=== PATIENT | male | born 1940 | race Caucasian/White ===

== ENCOUNTER 2019-07-31 03:26 | Observation (INO) | payer OTHER, BC ==
[2019-07-31 03:44] LABS: Protime INR 0.97
[2019-07-31 03:45] LABS: Absolute Lymphocytes (CBC) 2.6 K/uL (0.7-4.9); Basophils % 0.8 % (0-1.3); Hematocrit 36.7 % (39.6-49.0); Lymphocytes % 39.9 % (15.3-44.8); MPV 10.1 fL (7.6-11.3); RBC Red Blood Cell Count 3.89 M/uL (4.33-5.43)
[2019-07-31 04:05] LABS: ALT/SGPT 20 U/L (12-78); AST/SGOT 14 U/L (15-37); Albumin 3.4 g/dL (3.4-5.0); Alkaline Phosphatase 69 U/L (45-117); BUN Blood Urea Nitrogen 19 mg/dL (7-18); Bicarbonate 26 mmol/L (21-32); Bilirubin Direct 0.1 mg/dL (0-0.2); Bilirubin Total 0.3 mg/dL (0.2-1.0); Glucose Level 104 mg/dL (74-106); NT PRO-BNP 324 pg/mL (<450); Protein, Total 7.2 g/dL (6.4-8.2); Sodium Level 142 mmol/L (136-145); Troponin (Emerg Dept Use Only) < 0.02 ng/mL (0.0-0.045)
--- NOTE | 2019-07-31 04:29 | EDPHYS ---
Physician Documentation [facility] Name: Jovany Worrell Age: 78 yrs Sex: Male : 1940 Arrival Date: 07/31/2019 Time: 03:28 Bed 7 Private MD: ED Physician Arron Londono HPI: 07/30 03:40 This 78 yrs old Male presents to ER via Unassigned with complaints of chest tw4 pain. 03:40 The patient or guardian reports chest pain that is located primarily in the anterior tw4 chest wall. Onset: 1 week(s) ago. The pain does not radiate. Associated signs and symptoms: The patient has no apparent associated signs or symptoms. The chest pain is described as dull. Duration: The patient or guardian reports multiple episodes, that wax and wane. Modifying factors: The symptoms are alleviated by nothing. the symptoms are aggravated by nothing. Severity of pain: At its worst the pain was moderate in the emergency department the pain is unchanged. Historical: - Allergies: 07:50 Claritin-D 12 Hour; jl7 - Home Meds: 03:20 aspirin 81 mg Oral chew 1 tab once daily [Active]; Crestor 5 mg Oral tab 1 tab once jb4 daily [Active]; metoprolol tartrate 25 mg Oral tab 1 tab once daily [Active]; Plavix 75 mg Oral tab 1 tab once daily [Active]; - PMHx: 03:20 CAD; GERD; High Cholesterol; Hypertension; jb4 - PSHx: 03:20 GOITER REMOVED; Triple Bypass; CABG; jb4 - Immunization history:: Adult Immunizations up to date. - Social history:: Smoking status: Patient denies any tobacco usage or history of. Patient/guardian denies using alcohol, street drugs. ROS: 03:40 Constitutional: Negative for fever, chills, and weight loss, Eyes: Negative for injury, tw4 pain, redness, and discharge, Neck: Negative for injury, pain, and swelling, Respiratory: Negative for shortness of breath, cough, wheezing, and pleuritic chest pain, Abdomen/GI: Negative for abdominal pain, nausea, vomiting, diarrhea, and constipation, Back: Negative for injury and pain, MS/Extremity: Negative for injury and deformity, Skin: Negative for injury, rash, and discoloration, Neuro: Negative for headache, weakness, numbness, tingling, and seizure. 03:40 Cardiovascular: Positive for chest pain. Exam: 03:40 Constitutional: This is a well developed, well nourished patient who is awake, alert, tw4 and in no acute distress. Head/Face: Normocephalic, atraumatic. Chest/axilla: Normal chest wall appearance and motion. Nontender with no deformity. No lesions are appreciated. Cardiovascular: Regular rate and rhythm with a normal S1 and S2. No gallops, murmurs, or rubs. Normal PMI, no JVD. No pulse deficits. Respiratory: Lungs have equal breath sounds bilaterally, clear to auscultation and percussion. No rales, rhonchi or wheezes noted. No increased work of breathing, no retractions or nasal flaring. Abdomen/GI: Soft, non-tender, with normal bowel sounds. No distension or tympany. No guarding or rebound. No evidence of tenderness throughout. Back: No spinal tenderness. No costovertebral tenderness. Full range of motion. Skin: Warm, dry with normal turgor. Normal color with no rashes, no lesions, and no evidence of cellulitis. MS/ Extremity: Pulses equal, no cyanosis. Neurovascular intact. Full, normal range of motion. Neuro: Awake and alert, GCS 15, oriented to person, place, time, and situation. Cranial nerves II-XII grossly intact. Motor strength 5/5 in all extremities. Sensory grossly intact. Cerebellar exam normal. Normal gait. Vital Signs: 03:20 BP 163 / 74; Pulse 62; Resp 13 S; Temp 97.4; Pulse Ox 100% on R/A; Weight 75.75 kg (R); jb4 Height 5 ft. 9 in. (175.26 cm) (R); Pain 0/10; 04:00 BP 153 / 68; Pulse 53; Resp 15; Pulse Ox 100% on R/A; jb4 05:15 BP 133 / 67; Pulse 51; Resp 16; Pulse Ox 98% on R/A; jb4 06:00 BP 135 / 70; Pulse 57; Resp 16; Pulse Ox 99% on R/A; Pain 0/10; jb4 07:00 BP 144 / 73; Pulse 59; Resp 17 S; Pulse Ox 100% on R/A; Pain 0/10; jl7 03:20 Body Mass Index 24.66 (75.75 kg, 175.26 cm) jb4 MDM: 03:33 Patient medically screened. 04:28 Differential diagnosis: abnormal EKG, acute myocardial infarction, acute pericarditis, tw4 coronary artery disease gastroesophageal reflux disease (GERD), myocarditis, pulmonary embolus, stable angina, thoracic aortic disection, unstable angina. HEART Score: History: Moderately Suspicious (1), ECG: Non specific repolarization disturbance / LBTB / PM (1), Age: > or = 65 years (2), Risk Factors: > or = 3 Risk factors for atherosclerotic disease (2), Troponin: < or = 1 x Normal Limit (0), Total Score = 6. The patient was not given aspirin in the Emergency Department. Administered by EMS. Data reviewed: vital signs, nurses notes. Data interpreted: Pulse oximetry: Interpretation: normal. Test interpretation: by ED physician or midlevel provider: ECG, plain radiologic studies. Counseling: I had a detailed discussion with the patient and/or guardian regarding: the historical points, exam findings, and any diagnostic results supporting the discharge/admit diagnosis, lab results, radiology results. Physician consultation: Maximino Ricketts MD regarding admission, patient's condition, and will see patient in ED. 07/30 03:29 Order name: Basic Metabolic Panel [facility] 07/30 04:26 Interpretation: Normal except: CL 110; BUN 19; GFR 65. [facility] 07/30 03:29 Order name: CBC with Diff; Complete Time: 04:26 [facility] 07/30 04:26 Interpretation: Normal except: RBC 3.89; HGB 12.4; HCT 36.7; PLT 145. 07/30 03:29 Order name: LFT's [facility] 07/30 04:26 Interpretation: Normal except: AST 14; GLOB 3.8; A/G 0.9. 07/30 03:29 Order name: Magnesium [facility] 07/30 04:26 Interpretation: Within normal limits: MG 2.0. [facility] 07/30 03:29 Order name: NT PRO-BNP [facility] 07/30 03:29 Order name: PT-INR; Complete Time: 04:26 [facility] 07/30 03:29 Order name: Troponin (emerg Dept Use Only) [facility] 07/30 05:34 Order name: Basic Metabolic Panel [facility] 07/30 05:34 Order name: Basic Metabolic Panel [facility] 07/30 05:34 Order name: CBC with Automated Diff [facility] 07/30 05:34 Order name: CBC with Automated Diff [facility] 07/30 05:34 Order name: Lipid Profile [facility] 07/30 05:34 Order name: Lipid Profile [facility] 07/30 05:34 Order name: Troponin I [facility] 07/30 03:29 Order name: XRAY Chest (1 view) [facility] 07/30 03:29 Order name: EKG; Complete Time: 03: [facility] 07/30 03:29 Order name: Cardiac monitoring; Complete Time: 03:29 [facility] 07/30 03:29 Order name: EKG - Nurse/Tech; Complete Time: 03: [facility] 07/30 03:29 Order name: IV Saline Lock; Complete Time: 03: [facility] 07/30 03:29 Order name: Labs collected and sent; Complete Time: 03: [facility] 07/30 03:29 Order name: O2 Per Protocol; Complete Time: 03: [facility] 07/30 03:29 Order name: O2 Sat Monitoring; Complete Time: 03:29 [facility] 07/30 05:34 Order name: CONS Physician Consult [facility] 07/30 05:34 Order name: Heart Healthy [facility] 07/30 05:34 Order name: Echo with Doppler [facility] 07/30 05:34 Order name: EKG Electrocardiogram [facility] 07/30 05:34 Order name: EKG Electrocardiogram [facility] 07/30 05:34 Order name: Troponin I [facility] 07/30 05:34 Order name: Troponin I [facility] 07/30 07:16 Order name: Lipid Profile [facility] EC:40 Rate is 64 beats/min. Rhythm is regular, Normal Sinus Rhythm with PACs, Right bundle tw4 branch block. QRS [place] is Normal. DC interval is normal. QRS interval is normal. QT interval is normal. No Q waves. T waves are Inverted in leads V1, V2, V3. No ST changes noted. Clinical impression: NSR w/ Non-specific ST/T Changes. Interpreted by me. Reviewed by me. Administered Medications: No medications were administered Disposition: 07/31/19 04:28 Hospitalization ordered by Maximino Ricketts for Observation. Preliminary diagnosis is Other chest pain. - Bed requested for Telemetry/MedSurg (observation). - Status is Observation. jl7 - Condition is Stable. - Problem is new. - Symptoms have improved. Signatures: Dispatcher [employer] EDMS Jennifer Lynn, RN RN tl1 Heron Soni, RN RN jb4 Loren Keita RN RN jl7 Nilton Gomez, RN RN Arron Castro MD MD tw4 Corrections: (The following items were deleted from the chart) 05:59 04:28 Hospitalization Ordered by Maximino Ricketts MD for Observation. Preliminary tl1 diagnosis is Other chest pain. Bed requested for Telemetry/MedSurg (observation). Status is Observation. Condition is Stable. Problem is new. Symptoms have improved. tw4 08:00 03:20 Allergies: No Known Allergies; jb4 jl7 08:24 05:59 07/31/2019 04:28 Hospitalization Ordered by Maximino Ricketts MD for Observation. jl7 Preliminary diagnosis is Other chest pain. Bed requested for Telemetry/MedSurg (observation). Status is Observation. Condition is Stable. Problem is new. Symptoms have improved. tl1
--- NOTE | 2019-07-31 04:29 | ER ---
Nurse's Notes [facility] Name: Jovany Worrell Age: 78 yrs Sex: Male : 1940 Arrival Date: 07/31/2019 Time: 03:28 Bed 7 Private MD: Diagnosis: Other chest pain Presentation: 07/30 03:20 Chief complaint: EMS states: PT reports having chest pain off and on for 1 week w/ jb4 numbness to the left arm. It went away for a couple of days then last night at 2200 he said it started as a sharp pain and he had numbness to his left arm. Pt denies SOB. Pt took 162 of aspirin at home ALL AROUND PRESSER of EMS, was given 162 by EMS. 03:20 Coronavirus screen: Proceed with normal triage. Ebola Screen: No symptoms or risks jb4 identified at this time. Initial Sepsis Screen: Does the patient meet any 2 criteria? No. Patient's initial sepsis screen is negative. Does the patient have a suspected source of infection? No. Patient's initial sepsis screen is negative. Risk Assessment: Do you want to hurt yourself or someone else? Patient reports no desire to harm self or others. Onset of symptoms was July 24, 2019. Transition of care: patient was not received from another setting of care. 03:20 Method Of Arrival: EMS: [facility] jb4 03:20 Acuity: SHO 3 jb4 03:20 Care prior to arrival: Medication(s) given: ASA, 81 mg, x 2, IV initiated. 20 GA, in jb4 the right antecubital area. Historical: - Allergies: 07:50 Claritin-D 12 Hour; jl7 - Home Meds: 03:20 aspirin 81 mg Oral chew 1 tab once daily [Active]; Crestor 5 mg Oral tab 1 tab once jb4 daily [Active]; metoprolol tartrate 25 mg Oral tab 1 tab once daily [Active]; Plavix 75 mg Oral tab 1 tab once daily [Active]; - PMHx: 03:20 CAD; GERD; High Cholesterol; Hypertension; jb4 - PSHx: 03:20 GOITER REMOVED; Triple Bypass; CABG; jb4 - Immunization history:: Adult Immunizations up to date. - Social history:: Smoking status: Patient denies any tobacco usage or history of. Patient/guardian denies using alcohol, street drugs. Screenin:20 Abuse screen: Denies threats or abuse. Nutritional screening: No deficits noted. jb4 Tuberculosis screening: No symptoms or risk factors identified. Fall Risk IV access (20 points). Total Prado Fall Scale indicates No Risk (0-24 pts). Assessment: 03:20 General: Appears in no apparent distress. comfortable, Behavior is calm, cooperative, jb4 appropriate for age. Pain: Denies pain. Neuro: Level of Consciousness is awake, alert, obeys commands, Oriented to person, place, time, situation, Inker Machine are equal bilaterally Moves all extremities. Full function Speech is normal, Facial symmetry appears normal, Pupils are PERRLA, Numbness in left arm. Cardiovascular: Heart tones S1 S2 present Patient's skin is warm and dry. Rhythm is sinus bradycardia. Respiratory: Airway is patent Respiratory effort is even, unlabored, Respiratory pattern is regular, symmetrical, Breath sounds are clear bilaterally. GI: No signs and/or symptoms were reported involving the gastrointestinal system. : No signs and/or symptoms were reported regarding the genitourinary system. EENT: No signs and/or symptoms were reported regarding the EENT system. Derm: Skin is intact, Skin is pink, warm \\T\\ dry. Musculoskeletal: Circulation, motion, and sensation intact. Range of motion: intact in all extremities. 04:13 Reassessment: Patient appears in no apparent distress at this time. Patient and/or jb4 family updated on plan of care and expected duration. Pain level reassessed. Patient is alert, oriented x 3, equal unlabored respirations, skin warm/dry/pink. PT reports that the numbness in the left arm is no longer there and reports feeling as though he is back at his baseline. Patient denies pain at this time. Patient states feeling better. 05:21 Reassessment: Patient appears in no apparent distress at this time. Patient and/or jb4 family updated on plan of care and expected duration. Pain level reassessed. Pt is resting in bed with no s/s of pain noted. Respirations are even and unlabored. 06:11 Reassessment: Patient appears in no apparent distress at this time. Patient and/or jb4 family updated on plan of care and expected duration. Pain level reassessed. Patient is alert, oriented x 3, equal unlabored respirations, skin warm/dry/pink. Dr. Luna at the bedside. 06:43 Reassessment: Patient appears in no apparent distress at this time. Patient and/or jb4 family updated on plan of care and expected duration. Pain level reassessed. Patient is alert, oriented x 3, equal unlabored respirations, skin warm/dry/pink. PT back from ECHO. Gave verbal permission to update his son Amado Worrell on status and plan of care. states" tell him what ever you want, go ahead and fill him in". Verified sons phone number as [phone] Patient denies pain at this time. Vital Signs: 03:20 BP 163 / 74; Pulse 62; Resp 13 S; Temp 97.4; Pulse Ox 100% on R/A; Weight 75.75 kg (R); jb4 Height 5 ft. 9 in. (175.26 cm) (R); Pain 0/10; 04:00 BP 153 / 68; Pulse 53; Resp 15; Pulse Ox 100% on R/A; jb4 05:15 BP 133 / 67; Pulse 51; Resp 16; Pulse Ox 98% on R/A; jb4 06:00 BP 135 / 70; Pulse 57; Resp 16; Pulse Ox 99% on R/A; Pain 0/10; jb4 07:00 BP 144 / 73; Pulse 59; Resp 17 S; Pulse Ox 100% on R/A; Pain 0/10; jl7 03:20 Body Mass Index 24.66 (75.75 kg, 175.26 cm) jb4 ED Course: 03:20 Maintain EMS IV. Dressing intact. Good blood return noted. Site clean \\T\\ dry. Gauge \\T\\ huey 4 site: 20g RAC. 03:20 Arm band placed on right wrist. jb4 03:20 Patient has correct armband on for positive identification. Bed in low position. Call jb4 light in reach. Side rails up X 1. intermediate school teacher on. Pulse ox on. NIBP on. 03:28 Patient arrived in ED. jd3 03:33 Arron Londono MD is Attending Physician. tw4 03:33 EKG done, by ED staff, reviewed by Arron Londono MD. ds4 03:35 Heron Soni, RN is Primary Nurse. jb4 03:51 XRAY Chest (1 view) In Process Unspecified. EDMS 03:52 Triage completed. jb4 04:28 Maximino Ricketts MD is Hospitalizing Provider. tw4 06:12 No provider procedures requiring assistance completed. Patient admitted, IV remains in jb4 place. Administered Medications: No medications were administered Outcome: 04:28 Decision to Hospitalize by Provider. tw4 08:23 Admitted to Tele accompanied by tech, via wheelchair, room 209, with chart, Report jl7 called to STEPHANIE Sung 08:23 Condition: stable 08:23 Discharge instructions given to patient, Instructed on the need for admit, Demonstrated understanding of instructions. 08:24 Patient left the ED. jl7 Signatures: Dispatcher [employer] EDNH Wilver Jane ds4 Heron Soni RN RN jb4 Loren Keita RN RN hoang7 Nilton Gomez RN RN Arron Castro MD MD tw4 Corrections: (The following items were deleted from the chart) 08:00 03:20 Allergies: No Known Allergies; [facility] jl7
[2019-07-31] MEDS ORDERED: ACETAMINOPHEN 500 MG TAB PO PRN (05:29)
[2019-07-31] MEDS ORDERED: ALPRAZOLAM 0.25 MG TABLET PO PRN (05:29)
[2019-07-31] MEDS ORDERED: MORPHINE 4 MG/ML SYR IV PRN (05:29)
[2019-07-31] MEDS ORDERED: METOPROLOL TAR 50 MG TAB PO SCH (06:30)
[2019-07-31 07:15] LABS: HDL Cholesterol 40 mg/dL (40-60); LDL Cholesterol, Calculated 64 (<130)
[2019-07-31] MEDS ORDERED: REGADENOSON 0.4 MG/5 ML SYR IV ONE (08:16)
--- NOTE | 2019-07-31 08:31 | RAD REPORT ---
EXAM DESCRIPTION: RAD - Chest Single View - 07/31/2019 3:51 am CLINICAL HISTORY: CHEST PAIN Chest pain. COMPARISON: Chest Single View dated 05/09/2016; CHEST SINGLE VIEW dated 05/20/2015; ABDOMEN 1 VIEW KUB dated 07/01/2013; CHEST SINGLE VIEW dated 06/24/2013 FINDINGS: Portable technique limits examination quality. The lungs are mildly emphysematous a scarring in the left lung base noted. The heart is mildly enlarg ed in size with changes of a prior CABG seen. No displaced fractures. IMPRESSION: COPD.
[2019-07-31 08:59] VITALS: TEMP 98
--- NOTE | 2019-07-31 08:59 | P.HP ---
Certification for Inpatient Patient admitted to: Observation With expected LOS: <2 Midnights Patient will require the following post-hospital care: None Practitioner: I am a practitioner with admitting privileges, knowledge of patient current condition, hospital course, and medical plan of care. Services: Services provided to patient in accordance with Admission requirements found in Title 42 Section 412.3 of the Code of Federal Regulations Patient History Date of Service: 07/31/19 Reason for admission: Chest pain rule out acute coronary syndrome History of Present Illness: Patient is an 78-year-old gentleman who came to the hospital with chest discomfort. Patient's pain was mainly is sternal region. He has some chest pain prior to going to bed after he ate dinner. He took some Tums and it went away. He woke up around 2 o'clock with diaphoresis and shortness of breath along with chest pain and tingling of the left hand. He has history of Coronary artery bypass grafting so he decided to come into the emergency room for further evaluation. In the emergency room patient was found have negative troponins and no acute abnormalities on EKG. Patient has had cardiac testing earlier this year. At this time will go ahead and await cardiology consultation. Allergies loratadine [From Claritin-D 12 Hour] Allergy (Intermediate, Verified 12/07/11 06:29) Hives pseudoephedrine sulfate [From Claritin-D 12 Hour] Allergy (Intermediate, Verified 12/07/11 06:29) Hives No Known Allergies Allergy (Uncoded 05/21/15 01:40) Unknown Home Medications: Metoprolol Tartrate [Lopressor*] 25 mg PO DAILY 12/07/11 Rosuvastatin Calcium [Crestor] 5 mg PO DAILY 12/07/11 Aspirin 81 mg PO DAILY 05/09/16 Clopidogrel Bisulfate [Plavix*] 75 mg PO DAILY 05/09/16 Esomeprazole Magnesium 40 mg PO DAILY 05/09/16 Montelukast Sodium [Singulair] 10 mg PO DAILY 05/09/16 Niacin (Inositol Niacinate) [Niacin 500 mg Capsule] 1,000 mg PO DAILY 05/09/16 - Past Medical/Surgical History Diabetic: No -: gerd -: cad -: hyperlipidemia -: htn -: goiter removed -: cabg - Social History Alcohol use: Yes CD- Drugs: No Caffeine use: Yes Review of Systems 10-point ROS is otherwise unremarkable Physical Examination - Vital Signs Temperature: 98 F Blood Pressure: 144/73 Pulse: 59 Respirations: 17 Pulse Ox (%): 96 - Physical Exam General: Alert, In no apparent distress, Oriented x3 HEENT: Atraumatic, PERRLA, Mucous membr. moist/pink, EOMI, Sclerae nonicteric Neck: Supple, 2+ carotid pulse no bruit, No LAD, Without JVD or thyroid abnormality Respiratory: Clear to auscultation bilaterally, Normal air movement Cardiovascular: Regular rate/rhythm, Normal S1 S2, Systolic murmur Gastrointestinal: Normal bowel sounds, Soft and benign, Non-distended, No tenderness, No rebound, No guarding Musculoskeletal: No clubbing, No swelling, No tenderness Integumentary: No rashes Neurological: Normal gait, Normal speech, Normal strength at 5/5 x4 extr, Normal tone, Sensation intact, Cranial nerves 3-12 intact, Normal affect Lymphatics: No axilla or inguinal lymphadenopathy - Studies Laboratory Data (last 24 hrs) 07/31/19 03:25: PT 11.5, INR 0.97 07/31/19 03:25: WBC 6.6, Hgb 12.4 L, Hct 36.7 L, Plt Count 145 L 07/31/19 03:25: Sodium 142, Potassium 4.0, BUN 19 H, Creatinine 1.09, Glucose 1 04, Magnesium 2.0, Total Bilirubin 0.3, AST 14 L, ALT 20, Alkaline Phosphatase 69, Triglycerides 84, Cholesterol 121, HDL Cholesterol 40, Cholesterol/HDL Ratio 3.03 Assessment & Plan - Problems (Diagnosis) (1) Chest pain, rule out acute myocardial infarction Current Visit: Yes Status: Acute (2) History of coronary artery bypass graft x 2 Current Visit: Yes Status: Acute (3) Dyslipidemia Current Visit: Yes Status: Acute - Plan 1. Serial troponins and EKG 2. Cardiology consultation 3. Echocardiogram and stress test if troponins are negative 4. Anti-platelet therapy, anti coagulation, beta-fernanda, statin, and O2 as needed 5. IV morphine for pain 6. Nitro p.r.n. Discharge Plan: Home Plan to discharge in: 24 Hours - Advance Directives Does patient have a Living Will: No Does patient have a Durable POA for Healthcare: No - Code Status/Comfort Care Code Status Assessed: Yes Code Status: Full Code Critical Care: No Time Spent Managing PTS Care (In Minutes): 45
[2019-07-31] MEDS ORDERED: ENOXAPARIN 40 MG/0.4 ML SQ SCH (09:00)
[2019-07-31] MEDS ORDERED: ASPIRIN EC 81 MG TAB PO SCH ×2 (09:00→21:00)
[2019-07-31 09:33] VITALS: O2SAT 97; BMI 24.5
[2019-07-31] MEDS ORDERED: PNEUMOCOCCAL VACCINE 0.5 ML IMVAC ONE (11:00)
--- NOTE | 2019-07-31 11:55 | RAD REPORT ---
EXAM DESCRIPTION: NM - Rest Stress Cardiac Imaging - 07/31/2019 11:11 am CLINICAL HISTORY: CP Chest pain. COMPARISON: REST STRESS CARDIAC dated 01/20/2011 TECHNIQUE: The patient was administered approximately 10mCi of Tc 99m Sestamibi prior to resting SPE CT imaging of the heart. The patient was then administered approximately 30 mCi of Tc 99m Sestamibi f ollowing exercise or pharmacologic stress. Multiplanar SPECT images were reviewed. FINDINGS: No stress induced ischemic defect is seen to suggest stress induced ischemia. No fixed def ect is seen to suggest hibernating myocardium or scarred myocardium. The end diastolic volume is 99 ml, the end systolic volume is 41 ml, and the ejection fraction is 59 %. IMPRESSION: No stress induced ischemia.
[2019-07-31 13:00] VITALS: BP 136/68
--- NOTE | 2019-07-31 14:58 | P.DS ---
Admission Date: 07/31/19 Discharge Date: 07/31/19 Primary Care Provider: Cardiology-Dr. Lopez Disposition: ROUTINE DISCHARGE Reason for Admission: Chest pain rule out acute coronary syndrome Consultations: Cardiology-Dr. Lopez Procedures: Cardiac stress test: FINDINGS: No stress induced ischemic defect is seen to suggest stress induced ischemia. No fixed defect is seen to suggest hibernating myocardium or scarred myocardium. The end diastolic volume is 99 ml, the end systolic volume is 41 ml, and the ejection fraction is 59 %. IMPRESSION: No stress induced ischemia. CXR: FINDINGS: Portable technique limits examination quality. The lungs are mildly emphysematous a scarring in the left lung base noted. The heart is mildly enlarged in size with changes of a prior CABG seen. No displaced fractures. IMPRESSION: COPD. Medical Problem List: Chest pain with history of CAD/CABG Hypertension Hyperlipidemia GERD Brief History of Present Illness: 78-year-old male with history of CAD/CABG, hypertension, hyperlipidemia and GERD. Patient presented with chest pain. The patient was evaluated in the emergency room and admitted for further evaluation. Hospital Course: Patient presented with chest pain. Patient with history of CAD/CABG/hyper tension/hyperlipidemia/GERD. Patient was evaluated. Cardiac enzymes unremarkable. Patient seen by Cardiology. Cardiology recommended cardiac stress test to further evaluate. Cardiac stress test showed no stress-induced ischemia. Blood pressure slightly elevated. Medications have been adjusted. At discharge he is without significant chest pain. At discharge patient will continue with aspirin 81 mg daily, Plavix 75 mg daily, and adjusted dose of metoprolol 25 mg 1 pill twice daily. Recommend follow up with cardiology in 1-2 weeks to further address. Patient with hypertension. As mentioned above blood pressure medication has been adjusted. At discharge he will continue with metoprolol 25 mg 1 pill twice daily. Recommend to maintain blood pressure less 150/80. Further adjustment can be done by his PCP or cardiology. Patient with hyperlipidemia. Lipid panel within normal range. At discharge he will continue with his current medications of niacin 1000 mg daily and Crestor 5 mg daily. Patient will with GERD. At discharge she will continue with Nexium 40 mg daily. Chest pain may be related to GERD. Recommend follow up with GI as an outpatient to further evaluate. Patient may require EGD in the near future to further evaluate. Will provide GERD diet. Vital Signs/Physical Exam: Temp Pulse Resp BP Pulse Ox 98 F 60 18 136/68 98 07/31/19 12:00 07/31/19 12:00 07/31/19 12:00 07/31/19 12:00 07/31/19 12:00 General: Alert, In no apparent distress, Oriented x3, Cooperative HEENT: Atraumatic Neck: Supple Respiratory: Clear to auscultation bilaterally, Normal air movement Cardiovascular: Normal pulses, Regular rate/rhythm Gastrointestinal: Normal bowel sounds, Soft and benign, Non-distended, No tenderness, No masses, No rebound, No guarding Musculoskeletal: No erythema, No tenderness, No warmth Integumentary: No tenderness/swelling, No erythema, No warmth, No cyanosis Neurological: Normal speech, Normal strength at 5/5 x4 extr, Normal tone, Normal affect Laboratory Data at Discharge: WBC 6.6 K/uL (4.3-10.9) 07/31/19 03:25 Hgb 12.4 g/dL (13.6-17.9) L 07/31/19 03:25 Hct 36.7 % (39.6-49.0) L 07/31/19 03:25 Plt Count 145 K/uL (152-406) L 07/31/19 03:25 PT 11.5 SECONDS (9.5-12.5) 07/31/19 03:25 INR 0.97 07/31/19 03:25 Sodium 142 mmol/L (136-145) 07/31/19 03:25 Potassium 4.0 mmol/L (3.5-5.1) 07/31/19 03:25 BUN 19 mg/dL (7-18) H 07/31/19 03:25 Creatinine 1.09 mg/dL (0.55-1.3) 07/31/19 03:25 Glucose 104 mg/dL (74-106) 07/31/19 03:25 Magnesium 2.0 mg/dL (1.8-2.4) 07/31/19 03:25 Total Bilirubin 0.3 mg/dL (0.2-1.0) 07/31/19 03:25 AST 14 U/L (15-37) L 07/31/19 03:25 ALT 20 U/L (12-78) 07/31/19 03:25 Alkaline Phosphatase 69 U/L (45-117) 07/31/19 03:25 Troponin I < 0.02 ng/mL (0.0-0.045) 07/31/19 11:13 Triglycerides Cancelled 07/31/19 06:30 Cholesterol Cancelled 07/31/19 06:30 HDL Cholesterol Cancelled 07/31/19 06:30 Cholesterol/HDL Ratio Cancelled 07/31/19 06:30 Home Medications: Rosuvastatin Calcium [Crestor] 5 mg PO BEDTIME 12/07/11 Aspirin 81 mg PO DAILY AFTER SUPPER 05/09/16 Clopidogrel Bisulfate [Plavix*] 75 mg PO DAILY AFTER SUPPER 05/09/16 Esomeprazole Magnesium 40 mg PO DAILY AFTER SUPPER 05/09/16 Montelukast Sodium [Singulair] 10 mg PO BEDTIME PRN 05/09/16 Niacin (Inositol Niacinate) [Niacin 500 mg Capsule] 1,000 mg PO BEDTIME 05/09/16 Metoprolol Tartrate [Lopressor*] 25 mg PO BID #60 tab 07/31/19 New Medications: Metoprolol Tartrate [Lopressor*] 25 mg PO BID #60 tab Patient Discharge Instructions: 1. Recommend follow up with PCP in 1 week to follow up this hospitalization. 2. Patient presented with chest pain. Patient with history of CAD/CABG/hypertension/hyperlipidemia/GERD. Patient was evaluated. Cardiac enzymes unremarkable. Patient seen by Cardiology. Cardiology recommended cardiac stress test to further evaluate. Cardiac stress test showed no stress-induced ischemia. Blood pressure slightly elevated. Medications have been adjusted. At discharge he is without significant chest pain. At discharge patient will continue with aspirin 81 mg daily, Plavix 75 mg daily, and adjusted dose of metoprolol 25 mg 1 pill twice daily. Recommend follow up with cardiology in 1-2 weeks to further address. 3. Patient with hypertension. As mentioned above blood pressure medication has been adjusted. At discharge he will continue with metoprolol 25 mg 1 pill twice daily. Recommend to maintain blood pressure less 150/80. Further adjustment can be done by his PCP or cardiology. 4. Patient with hyperlipidemia. Lipid panel within normal range. At discharge he will continue with his current medications of niacin 1000 mg daily and Crestor 5 mg daily. 5. Patient will with GERD. At discharge she will continue with Nexium 40 mg daily. Chest pain may be related to GERD. Recommend follow up with GI as an outpatient to further evaluate. Patient may require EGD in the near future to further evaluate. Will provide GERD diet. Diet: AHA Activity: Ad arlene Time spent managing pt's care (in minutes): 55
--- NOTE | 2019-07-31 17:11 | CON ---
Date of Consultation: 07/31/2019 Reason For Consultation: Chest pain and palpitation. History Of Present Illness: Mr. Worrell is an 78-year-old male who is known to us from a previous o ffice visit and hospital admission. He underwent coronary artery bypass surgery in [address] Nemo chin at [facility]. He has a history of hypertension, dyslipidemia, asthma, and gastroesop hageal reflux disease. He has been having palpitations intermittently for the last week, but yesterd ay had chest pain that is left-sided, lateral sharp stabbing with some sweating and nausea. No vomit ing. No shortness of breath. Denied PND, orthopnea, pedal edema, or syncope. He denied any fever o r chills or cough. Workup so far showed an EKG with incomplete right bundle-branch block. His tropo winston was negative. His chest x-ray was negative. Allergies: LORATADINE AND PSEUDOEPHEDRINE. Review of Systems: Negative. Social History: Negative. Family History: Noncontributory. Medications: At home include, aspirin, Plavix, Nexium, Singulair, metoprolol, Crestor, and niacin. Physical Examination: Vital Signs: Stable. He was afebrile. HEENT: Negative. Neck: Supple with no bruit, lymphadenopathy, JVD, or thyromegaly. Chest: Clear to auscultation and percussion. Cardiac Exam: Revealed a regular rhythm and rate. No murmurs, gallops, or rubs. Abdomen: Benign. Extremities: Revealed no clubbing, cyanosis, or edema. Diagnostic Data: As stated earlier. Impression And Plan: This is a patient with history of coronary artery bypass graft, now has palpita tion and chest pain with sweating and nausea. They are worrisome about worsening coronary artery dis ease. Echocardiogram and Lexiscan are pending. I will continue to monitor him to see if he is havin g any arrhythmias. I would still suggest an event monitor as an outpatient when he goes home. We wi ll see what the echocardiogram and Lexiscan show before making any final decisions. His dyslipidemia , hypertension, asthma, gastroesophageal reflux disease are otherwise, stable and well controlled. NB/MODL Voice ID: [id number] Report ID: [id number]
--- NOTE | 2019-08-01 06:31 | EKG ---
Test Date: 2019-07-31 Test Time: 03:31:27 Bulb Filler: FRAN MEASUREMENT RESULTS: Intervals: Rate: 64 IL: 188 QRSD: 150 QT: 438 QTc: 451 [place]: P: 38 IL: 188 QRS: -51 T: 31 INTERPRETIVE STATEMENTS: Sinus rhythm with premature supraventricular complexes Right bundle branch block Left anterior fascicular block Bifascicular block Abnormal ECG Compared to ECG 05/09/2016 01:44:38 No significant changes Electronically Signed On 08-01-19 06:30:20 CDT by Bowen Lopez
--- NOTE | 2019-08-01 08:46 | ECHO ---
HEIGHT: 5 ft 9 in WEIGHT: 166 lb 0 oz DATE OF STUDY: 07/31/[address]: Maximino Ricketts MD 2-DIMENSIONAL: YES M.MODE: YES DOPPLER: YES COLOR FLOW: YES TDS: NO PORTABLE: NO DEFINITY: NO BUBBLE STUDY: NO DIAGNOSIS: CHEST PAIN RULE OUT ACS CARDIAC HISTORY: CATHERIZATION: YES SURGERY: YES PROSTHETIC VALVE: NO PACEMAKER: NO MEASUREMENTS (cm) DIASTOLIC (NORMALS) SYSTOLIC (NORMALS) IVSd 0.9 (0.6-1.2) LA Diam 3.1 (1.9-4.0) LVEF 65% LVIDd 4.5 (3.5-5.7) LVIDs 2.9 (2.0-3.5) %FS 36% LVPWd 1.0 (0.6-1.2) Ao Diam 3.2 (2.0-3.7) 2 DIMENSIONAL ASSESSMENT: RIGHT ATRIUM: NORMAL LEFT ATRIUM: NORMAL RIGHT VENTRICLE: NORMAL LEFT VENTRICLE: NORMAL SIZE TRICUSPID VALVE: NORMAL MITRAL VALVE: NORMAL PULMONIC VALVE: NORMAL AORTIC VALVE: NORMAL PERICARDIAL EFFUSION: NONE AORTIC ROOT: NORMAL LEFT VENTRICULAR WALL MOTION: NORMAL DOPPLER/COLOR FLOW: MILD TRICUSPID REGURGITATION. COMMENTS: MILD TRICUSPID REGURGITATION. NORMAL LEFT VENTRICULAR SIZE AND FUNCTION. NO WALL MOTION ABNORMALITY. NO EFFUSION. TECHNOLOGIST: Jonathan PRYOR
--- NOTE | 2019-08-01 10:29 | TREADPHA ---
DX: CHEST PAIN Date of Study: 07/31/2019 Ht: 5' 9 " Wt: 166 lb 0 oz Consulting Physician: WANG MEDICATIONS: TYLENOL, XANAX, ASPIRIN, LOVENOX, LOPRESSOR HISTORY: 78 YEAR OLD MALE COMPLAINTS OF CHEST PAIN. MEDICAL HISTORY OF CORONARY ARTERY DISEASE, GERD, HIGH CHOLESTEROL, BYPASS, HYPERTENSION. PHYSICIAL EXAMINATION: RESTING B.P.: 148/71 RESTING H.R.: 62 RESTING EKG: SINUS RHYTHM, BIFICULAR BLOCK. PROTOCOL: LEXISCAN EXERCISE TIME: 3:30 B.P. AT PEAK STRESS: 157/70 IMPRESSION: LEXISCAN INJECTED, CARDIOLITE INJECTED PER PROTOCOL. NO SUPRAVENTRICULAR TACHYCARDIA, VENTRICULAR TACHYCARDIA OR PREMATURE VENTRICULAR COMPLEXES. DENIED ANY CHEST PAIN.
== END 2019-07-31 15:28 | disposition home or self-care (01) ==
LOC: ER 03:26 → ERHOLD 05:35 → 2ND 07:49
PROVIDERS: ADMIT Hospitalist; ATTEND Hospitalist
DX: R07.9 Chest pain, unspecified (principal); K21.9 Gastro-esophageal reflux disease without esophagitis; I25.10 Atherosclerotic heart disease of native coronary artery without angina pectoris; E78.5 Hyperlipidemia, unspecified; I10 Essential (primary) hypertension; J45.909 Unspecified asthma, uncomplicated; Z95.1 Presence of aortocoronary bypass graft
CPT/HCPCS: 93005; 93017; 93306; 85025; 80048; 36415; 83735; 85610; 80061; 80076; 84484 ×2; 83880; 71045; 78452; 99285; J1650; J2785; A9500; G0378 ×2

== ENCOUNTER 2021-07-28 21:04 | Emergency (ER) | payer OTHER, BC ==
--- NOTE | 2021-07-28 22:22 | RAD REPORT ---
EXAM DESCRIPTION: CTStone Protocol - 07/28/2021 10:07 pm CLINICAL HISTORY: Flank pain, kidney stone suspected COMPARISON: Abdomen Pelvis W Contrast dated 12/05/2016; CTSTONE PROTOCOL dated 07/05/2013 TECHNIQUE: CT of the abdomen and pelvis was performed. All CT scans are performed using dose optimization technique as appropriate and may include automated exposure control or mA/KV adjustment according to patient size. FINDINGS: Lower chest: No acute abnormality. Coronary artery calcifications . Liver: No acute abnormality or suspicious lesions. Biliary: No biliary ductal dilatation. Stomach: No significant focal abnormality. Duodenum: No significant focal abnormality. Pancreas: No significant abnormality. Spleen: No significant abnormality. Adrenal: No suspicious lesions. Kidney/ureter: Mild left-sided hydronephrosis secondary to a 3 mm stone left proximal ureter. Nonspec ific bilateral perinephric stranding. No other stones are identified. Retroperitoneum: No retroperitoneal adenopathy. Vascular: No aneurysm. Mild atherosclerosis. Bowel: Diverticulosis without diverticulitis. Normal appendix.. Peritoneum: No ascites or free air. Bladder: Grossly unremarkable. Reproductive: No adnexal masses. Bones: No acute fracture. Other: n/a IMPRESSION: Mild left-sided hydronephrosis secondary to a 3 mm stone in the left proximal ureter.
[2021-07-28 22:46] LABS: Urine Blood 3+ (Negative); Urine Glucose Negative (Negative); Urine Protein 1+ (Negative); Urine Specific Gravity >=1.030 (1.005-1.030); Urine pH 5.5 (5.0-7.0)
--- NOTE | 2021-07-28 22:53 | ER ---
Nurse's Notes [facility] Name: Jovany Worrell Age: 80 yrs Sex: Male : 1940 Arrival Date: 07/28/2021 Time: 21:15 Bed Waiting Private MD: Diagnosis: Calculus of Ureter Presentation: 07/28 21:34 Chief complaint: Patient states: I Think I have a kidney stone. I had one in the past jb4 and the symptoms feel the same as before. Coronavirus screen: At this time, the client does not indicate any symptoms associated with coronavirus-19. Ebola Screen: No symptoms or risks identified at this time. Initial Sepsis Screen: Does the patient meet any 2 criteria? No. Patient's initial sepsis screen is negative. Does the patient have a suspected source of infection? No. Patient's initial sepsis screen is negative. Risk Assessment: Do you want to hurt yourself or someone else? Patient reports no desire to harm self or others. Onset of symptoms was July 28, 2021. Transition of care: patient was not received from another setting of care. 21:34 Method Of Arrival: EMS: [facility] jb4 21:34 Acuity: SHO 3 jb4 Triage Assessment: 23:54 General: Appears in no apparent distress. Behavior is calm, cooperative, appropriate vc1 for age. Pain: Complains of pain in left flank. Historical: - Allergies: 21:37 NKDA; jb4 - PMHx: 21:37 CAD; GERD; High Cholesterol; Hypertension; jb4 - PSHx: 21:37 heart surgery; jb4 - Immunization history:: Adult Immunizations up to date. - Social history:: Smoking status: Patient denies any tobacco usage or history of. Screenin:54 Abuse screen: Denies threats or abuse. Nutritional screening: No deficits noted. vc1 Tuberculosis screening: No symptoms or risk factors identified. Fall Risk None identified. Vital Signs: 21:34 BP 146 / 76; Pulse 78; Resp 16; Temp 97.7(TE); Pulse Ox 100% on R/A; Weight 71.67 kg jb4 (R); Height 5 ft. 9 in. (175.26 cm) (R); Pain 0/10; 21:34 Body Mass Index 23.33 (71.67 kg, 175.26 cm) jb4 ED Course: 21:15 Patient arrived in ED. oe 21:25 Blue Tariq PA is PHCP. jmm 21:25 Rolando Harmon MD is Attending Physician. jmm 21:37 Triage completed. jb4 21:37 Arm band placed on right wrist. jb4 22:08 CT Stone Protocol In Process Unspecified. EDMS 22:52 Rojas Case MD is Referral Physician. jmm 23:54 No provider procedures requiring assistance completed. IV discontinued, intact, vc1 bleeding controlled, No redness/swelling at site. Pressure dressing applied. Administered Medications: 23:41 Drug: morphine 4 mg Route: IVP; Site: right antecubital; vc1 23:41 Drug: Zofran (Ondansetron) 4 mg Route: IVP; Site: right antecubital; vc1 23:53 Drug: Flomax (tamsulosin) 0.4 mg Route: PO; vc1 23:54 CANCELLED (Duplicate Order): morphine 4 mg IVP once vc1 23:54 CANCELLED (Duplicate Order): Zofran (Ondansetron) 4 mg IVP once; over 2 minutes vc1 Medication: 23:55 VIS not applicable for this client. vc1 Outcome: 22:53 Discharge ordered by MD. jm 23:54 Discharged to home ambulatory, with family. vc1 23:54 Condition: good 23:54 Discharge instructions given to patient, family, Instructed on discharge instructions, follow up and referral plans. medication usage, Demonstrated understanding of instructions, follow-up care, medications, Prescriptions given X 3. 23:55 Patient left the ED. vc1 Signatures: Dispatcher [employer] EDMS Blue Tariq PA PA Heron Castañeda, RN RN jb4 Chance Joy Vanessa, RN RN vc1 Corrections: (The following items were deleted from the chart) 21:38 21:37 Allergies: Claritin-D 12 Hour; jb4 jb4
--- NOTE | 2021-07-28 22:53 | EDPHYS ---
Physician Documentation [facility] Name: Jovany Worrell Age: 80 yrs Sex: Male : 1940 Arrival Date: 07/28/2021 Time: 21:15 Bed Waiting Private MD: ED Physician Rolando Harmon HPI: 07/28 22:49 This 80 yrs old Male presents to ER via EMS with complaints of flank pain. jmm 22:49 The patient complains of pain in the left flank. The pain radiates to the abdomen. jmm Onset: The symptoms/episode began/occurred acutely, just prior to arrival. Modifying factors: The symptoms are alleviated by nothing. the symptoms are aggravated by nothing. Associated signs and symptoms: Pertinent negatives: dysuria, fever. The patient has experienced a previous episode, with previous kidney stones. Historical: - Allergies: 21:37 NKDA; jb4 - PMHx: 21:37 CAD; GERD; High Cholesterol; Hypertension; jb4 - PSHx: 21:37 heart surgery; jb4 - Immunization history:: Adult Immunizations up to date. - Social history:: Smoking status: Patient denies any tobacco usage or history of. ROS: 22:49 Constitutional: Negative for fever, chills, and weight loss, Cardiovascular: Negative jmm for chest pain, palpitations, and edema, Respiratory: Negative for shortness of breath, cough, wheezing, and pleuritic chest pain. 22:49 Abdomen/GI: Positive for abdominal pain. 22:49 All other systems are negative. Exam: 22:49 Constitutional: This is a well developed, well nourished patient who is awake, alert, jmm and in no acute distress. Head/Face: atraumatic. Eyes: EOMI, no conjunctival erythema appreciated ENT: Moist Mucus Membranes Neck: Trachea midline, Supple Chest/axilla: Normal chest wall appearance and motion. Cardiovascular: Regular rate and rhythm. No edema appreciated Respiratory: Normal respirations, no respiratory distress appreciated Abdomen/GI: Non distended, soft 22:49 Skin: General appearance color normal MS/ Extremity: Moves all extremities, no obvious deformities appreciated, no edema noted to the lower extremities Neuro: Awake and alert Psych: Behavior is normal, Mood is normal, Patient is cooperative and pleasant 22:49 Back: CVA tenderness, that is mild. Vital Signs: 21:34 BP 146 / 76; Pulse 78; Resp 16; Temp 97.7(TE); Pulse Ox 100% on R/A; Weight 71.67 kg jb4 (R); Height 5 ft. 9 in. (175.26 cm) (R); Pain 0/10; 21:34 Body Mass Index 23.33 (71.67 kg, 175.26 cm) jb4 MDM: 22:51 Data reviewed: vital signs, nurses notes. Counseling: I had a detailed discussion with [facility] the patient and/or guardian regarding: the historical points, exam findings, and any diagnostic results supporting the discharge/admit diagnosis, lab results, radiology results, the need for outpatient follow up, to return to the emergency department if symptoms worsen or persist or if there are any questions or concerns that arise at home. ED course: Was relieved in the ED prior to initial evaluation. Patient was administered ketorolac in route. Patient has no nausea or vomiting right now. UA did not reveal any signs of infection. Sent for culture. Patient advised follow-up with urology and otherwise given strict return precautions. Patient understood and agrees plan of care.. 22:53 Patient medically screened. [facility] 07/28 22:45 Order name: Urine Culture [facility] 07/28 22:46 Order name: Urine Dipstick-Ancillary; Complete Time: 22:49 [facility] 07/28 21:30 Order name: CT Stone Protocol; Complete Time: 22:26 [facility] 07/28 21:31 Order name: Urine Dipstick-Ancillary (obtain specimen) [facility] Administered Medications: 23:41 Drug: morphine 4 mg Route: IVP; Site: right antecubital; vc1 23:41 Drug: Zofran (Ondansetron) 4 mg Route: IVP; Site: right antecubital; vc1 23:53 Drug: Flomax (tamsulosin) 0.4 mg Route: PO; vc1 23:54 CANCELLED (Duplicate Order): morphine 4 mg IVP once vc1 23:54 CANCELLED (Duplicate Order): Zofran (Ondansetron) 4 mg IVP once; over 2 minutes vc1 Disposition: 07/29 00:28 Co-signature as Attending Physician, Rolando Harmon MD. rn Disposition Summary: 07/28/21 22:53 Discharge Ordered Location: Home [facility] Condition: Stable [facility] Diagnosis - Calculus of Ureter [facility] Followup: [facility] - With: Rojas Case MD - When: 2 - 3 days - Reason: Recheck today's complaints, Continuance of care, Re-evaluation by your physician Discharge Instructions: - Discharge Summary Sheet [facility] - Kidney Stones [facility] - Dietary Guidelines to Help Prevent Kidney Stones [facility] Forms: - Medication Reconciliation Form [facility] - Thank You Letter [facility] - Antibiotic Education [facility] - Prescription Opioid Use [facility] Prescriptions: - tamsulosin 0.4 mg Oral capsule - take 1 capsule by ORAL route once daily 1/2 hour following the same meal each [facility] day; 10 capsule; Refills: 0, Product Selection Permitted - Ultracet 37.5-325 mg Oral Tablet - take 1 tablet by ORAL route every 6 hours - for up to 5 days; do not exceed 8 jmm tablets per day.; 20 tablet; Refills: 0, Product Selection Permitted - ondansetron 4 mg Oral tablet,disintegrating - place 1 tablet by TRANSLINGUAL route every 4-6 hours As needed; 20 tablet; [facility] Refills: 0, Product Selection Permitted Signatures: Dispatcher [employer] EDMS Blue Tariq PA PA [facility] Rolando Harmon MD MD rn Bryson, James RN RN jb4 Belinda Bailey RN RN vc1 Corrections: (The following items were deleted from the chart) 07/28 21:38 21:37 Allergies: Claritin-D 12 Hour; emanuel jb4 23:54 23:41 morphine 4 mg IVP once ordered. [facility] vc1 23:54 23:41 Zofran (Ondansetron) 4 mg IVP once; over 2 minutes ordered. [facility] vc1
[2021-07-28] MEDS ORDERED: MORPHINE 4 MG/ML SYR ONE (23:38)
[2021-07-28] MEDS ORDERED: ONDANSETRON 4 MG/2 ML VIAL ONE (23:38)
[2021-07-28] MEDS ORDERED: TAMSULOSIN 0.4 MG SR CAP ONE (23:50)
[2021-07-29 00:15] VITALS: BP 146/76; TEMP 97.7; O2SAT 100
== END 2021-07-28 23:55 | disposition home or self-care (01) ==
LOC: ER 21:04
DX: N20.1 Calculus of ureter (principal); I10 Essential (primary) hypertension
CPT/HCPCS: 87088; 87086; 81003; 76377; 74176; 96375; 96374; 99284; J2405

== ENCOUNTER 2021-10-21 10:04 | Observation (INO) | payer OTHER, BC ==
[2021-10-21 10:34] LABS: Absolute Lymphocytes (CBC) 1.7 K/uL (0.7-4.9); Hematocrit 36.3 % (39.6-49.0); Lymphocytes % 33.6 % (15.3-44.8); MPV 8.5 fL (7.6-11.3)
[2021-10-21 10:48] LABS: SARS-CoV-2 Antigen Rapid Res Negative (Negative)
[2021-10-21 10:49] LABS: Protime INR 1.04
[2021-10-21 10:54] LABS: Troponin High Sensitivity 7.5 pg/mL (<58.9)
--- NOTE | 2021-10-21 11:17 | RAD REPORT ---
EXAM DESCRIPTION: RAD - Chest Single View - 10/21/2021 10:57 am CLINICAL HISTORY: CHEST PAIN COMPARISON: Chest Single View dated 07/31/2019; Chest Single View dated 05/09/2016; CHEST SINGLE VIEW dated 05/20/2015; ABDOMEN 1 VIEW KUB dated 07/01/2013; Stone Protocol dated 07/28/2021 FINDINGS: Lines: None. Lungs: No evidence of edema or pneumonia. Pleural: No significant pleural effusions or pneumothorax. Cardiac: Cardiomegaly Bones: No acute fractures. Other: Sternotomy. IMPRESSION: No acute cardiopulmonary disease.
--- NOTE | 2021-10-21 13:04 | EDPHYS ---
Physician Documentation [facility] Name: Jovany Worrell Age: 81 yrs Sex: Male : 1940 Arrival Date: 10/21/2021 Time: 10:10 Bed 4 Private MD: ED Physician Nrianjan Cruz HPI: 10/21 10:22 This 81 yrs old Male presents to ER via EMS with complaints of Chest Pain > 30 y/o. ms3 10:22 The patient or guardian reports chest pain that is located primarily in the substernal ms3 area. Onset: acutely, 2 hour(s) ago. The pain does not radiate. Associated signs and symptoms: Pertinent positives: Pertinent negatives: diaphoresis, nausea, shortness of breath, vomiting. The chest pain is described as sharp. Duration: The patient or guardian reports multiple episodes, the episodes last approximately 2 second(s). Modifying factors: The symptoms are alleviated by nothing. the symptoms are aggravated by nothing. Severity of pain: At its worst the pain was moderate in the emergency department the pain has improved. EMS care prior to arrival includes: aspirin. 81 yo male PMH CAD, HTN presents via [facility] for chest pain that began at 0830. EMS administered 324 mg ASA. Patient states his pain has subsided, but was sharp and lasted 2 seconds and occurred 7-8 times. Patient denies alleviating or inciting factors. . Historical: - Allergies: 10:39 NKDA; tw2 - Home Meds: 10:39 aspirin 81 mg Oral chew 1 tab once daily [Active]; Nexium 20 mg Oral cpDR 1 cap once tw2 daily [Active]; rosuvastatin 10 mg oral tab 1 tab once daily [Active]; metoprolol tartrate 25 mg Oral tab 1 tab once daily [Active]; Plavix 75 mg Oral tab 1 tab once daily [Active]; niacin 500 mg Oral cpER 1 cap once daily [Active]; - PMHx: 10:39 CAD; GERD; High Cholesterol; Hypertension; tw2 - PSHx: 10:39 heart surgery; CABG; tw2 - Immunization history:: Adult Immunizations. - Social history:: Smoking status: . ROS: 10:22 Constitutional: Negative for fever, and chills. Eyes: Negative for injury, pain, ms3 redness, and discharge, Neck: Negative for injury, pain, and swelling, Respiratory: Negative for shortness of breath, cough, wheezing, and pleuritic chest pain, Abdomen/GI: Negative for abdominal pain, nausea, vomiting, diarrhea, and constipation, MS/Extremity: Negative for injury and deformity, Skin: Negative for injury, rash, and discoloration. 10:22 Cardiovascular: Positive for chest pain. 10:22 All other systems are negative. Exam: 10:22 Constitutional: This is a well developed, well nourished patient who is awake, alert, ms3 and in no acute distress. Neck: Trachea midline, no cervical lymphadenopathy. Supple, full range of motion without nuchal rigidity, or vertebral point tenderness. No Meningismus. Chest/axilla: Normal chest wall appearance and motion. Nontender with no deformity. Cardiovascular: Regular rate and rhythm with a normal S1 and S2. No gallops, murmurs, or rubs. Normal PMI, no JVD. No pulse deficits. Respiratory: Lungs have equal breath sounds bilaterally, clear to auscultation and percussion. No rales, rhonchi or wheezes noted. No increased work of breathing, no retractions or nasal flaring. Abdomen/GI: Soft, non-tender, with normal bowel sounds. No distension or tympany. No guarding or rebound. No evidence of tenderness throughout. Skin: Warm, dry with normal turgor. Normal color with no rashes, no lesions, and no evidence of cellulitis. MS/ Extremity: Pulses equal, no cyanosis. Neurovascular intact. Full, normal range of motion. Neuro: Awake and alert, GCS 15, oriented to person, place, time, and situation. Cranial nerves II-XII grossly intact. Motor strength 5/5 in all extremities. Sensory grossly intact. Cerebellar exam normal. Normal gait. Psych: Awake, alert, with orientation to person, place and time. Behavior, mood, and affect are within normal limits. Vital Signs: 10:10 BP 166 / 78; Pulse 67; Resp 18; Temp 98.5(O); Pulse Ox 100% on R/A; Weight 76.2 kg (R); tw2 Height 5 ft. 9 in. (175.26 cm); Pain 0/10; 11:00 BP 144 / 68; Pulse 59; Resp 17; Pulse Ox 97% on R/A; tw2 12:03 BP 136 / 59; Pulse 70; Resp 17; Pulse Ox 98% on R/A; tw2 13:00 BP 135 / 80; Pulse 66; Resp 17; Pulse Ox 97% on R/A; tw2 14:04 BP 143 / 71; Pulse 68; Resp 18; Pulse Ox 98% on R/A; tw2 15:00 BP 139 / 72; Pulse 67; Resp 19; Pulse Ox 99% on R/A; tw2 16:00 BP 145 / 66; Pulse 70; Resp 17; Pulse Ox 98% on R/A; tw2 16:53 BP 151 / 66; Pulse 63; Resp 16; Pulse Ox 100% on R/A; tw2 10:10 Body Mass Index 24.81 (76.20 kg, 175.26 cm) tw2 MDM: 10:10 Patient medically screened. ms3 10:22 Differential diagnosis: abnormal EKG, acute myocardial infarction, acute pericarditis, ms3 chest wall pain. The patient was not given aspirin in the Emergency Department. Administered by EMS. 13:00 HEART Score: History: Slightly Suspicious (0), ECG: Normal (0), Age: > or = 65 years ms3 (2), Risk Factors: > or = 3 Risk factors for atherosclerotic disease (2), Troponin: < or = 1 x Normal Limit (0), Total Score = 4. Data reviewed: vital signs, nurses notes, lab test result(s), EKG, radiologic studies, Discussed case with Dr Merchant and he would like patient to be placed in observation and he will consult on patient., and as a result, I will admit patient. Data interpreted: traffic monitor specialist: rate is 56 beats/min, rhythm is normal sinus rhythm, with no ectopy, Interpretation: normal rate, normal rhythm, Pulse oximetry: on room air is 98 %. Interpretation: normal. Test interpretation: by ED physician or midlevel provider: ECG. Counseling: I had a detailed discussion with the patient and/or guardian regarding: the historical points, exam findings, and any diagnostic results supporting the discharge/admit diagnosis, lab results, radiology results, the need for further work-up and treatment in the hospital. ED course: Discussed case with Dr Caputo and he accepts patient as observation.. 10/21 10:21 Order name: SARS RAPID; Complete Time: 10:56 iw 10/21 10:31 Order name: Basic Metabolic Panel; Complete Time: 10:56 EDMS 10/21 10:11 Order name: XRAY Chest (1 view); Complete Time: 11:52 iw 10/21 10:11 Order name: EKG; Complete Time: 10:13 iw 10/21 10:11 Order name: Cardiac monitoring; Complete Time: 10:29 iw 10/21 10:31 Order name: Troponin High Sensitivity; Complete Time: 10:56 EDMS 10/21 10:31 Order name: CBC with Automated Diff; Complete Time: 10:56 EDMS 10/21 10:32 Order name: Protime (+INR); Complete Time: 10:56 EDMS 10/21 16:46 Order name: Troponin High Sensitivity tw2 10/21 17:29 Order name: Troponin High Sensitivity EDMS 10/21 10:11 Order name: EKG - Nurse/Tech; Complete Time: 10:29 iw 10/21 10:11 Order name: IV Saline Lock; Complete Time: 10:29 iw 10/21 10:11 Order name: Labs collected and sent; Complete Time: 10:29 iw 10/21 10:11 Order name: O2 Per Protocol; Complete Time: 10:29 iw 10/21 10:11 Order name: O2 Sat Monitoring; Complete Time: 10:29 iw Administered Medications: No medications were administered Disposition Summary: 10/21/21 13:03 Hospitalization Ordered Hospitalization Status: Observation ms3 Provider: Horace Caputo ms3 Condition: Stable ms3 Problem: new ms3 Symptoms: are unchanged ms3 Bed/Room Type: Standard ms3 Location: [facility] ER HOLD(10/21/21 18:05) Room Assignment: (10/21/21 18:05) Diagnosis - Chest pain, unspecified ms3 - Atherosclerotic heart disease of [place] coronary artery ms3 Forms: - Medication Reconciliation Form ms3 - SBAR form ms3 Signatures: Dispatcher [employer] Estelle Delgadillo RN RN dw Marti Rogers RN STEPHANIE iw Giovanna Ackerman RN RN tw2 Niranjan Cruz DO DO ms3 Corrections: (The following items were deleted from the chart) 12:44 10:48 BASIC METABOLIC PANEL+C.LAB.BRZ ordered. EDWI EDWI 12:44 10:48 CBC+H.LAB.BRZ ordered. EDMS EDMS 12:44 10:48 PROTIME (+INR)+COAG.LAB.BRZ ordered. EDMS EDMS 12:44 10:48 Troponin High Sensitivity+C.LAB.BRZ ordered. EDMS EDMS 16:41 13:03 ms3 18:05 13:03 Telemetry/MedSurg (observation) ms3 18:05 16:41 209 dw dw
--- NOTE | 2021-10-21 13:04 | ER ---
Nurse's Notes [facility] Name: Jovany Worrell Age: 81 yrs Sex: Male : 1940 Arrival Date: 10/21/2021 Time: 10:10 Bed 4 Private MD: Diagnosis: Chest pain, unspecified;Atherosclerotic heart disease of [place] coronary artery Presentation: 10/21 10:10 Chief complaint: EMS states: pt c/o intermittent substernal chest pain started approx tw2 830. pt took 2 ASA prior to our arrival. we gave 2 more ASA. pt has hx of HTN and CABG. EKG shows BBB. does NOT show stemi, vs stable. pt reports that he ate a hot dog last night, which he normally does not and states the first aspirin helped a bit but it does not feel like indigestion. Coronavirus screen: At this time, the client does not indicate any symptoms associated with coronavirus-19. Ebola Screen: Patient denies travel to an Ebola-affected area in the 21 days before illness onset. Initial Sepsis Screen: Does the patient meet any 2 criteria? No. Patient's initial sepsis screen is negative. Does the patient have a suspected source of infection? No. Patient's initial sepsis screen is negative. Risk Assessment: Do you want to hurt yourself or someone else? Patient reports no desire to harm self or others. Onset of symptoms was October 21, 2021. 10:10 Method Of Arrival: EMS: [facility] tw2 10:10 Acuity: SHO 3 tw2 Triage Assessment: 08:11 General: Appears in no apparent distress. well groomed, Behavior is calm, cooperative, tw2 appropriate for age. Pain: Denies pain. Neuro: Level of Consciousness is awake, alert, obeys commands, Oriented to person, place, time, situation. Cardiovascular: Capillary refill < 3 seconds Patient's skin is warm and dry. Respiratory: Airway is patent Respiratory effort is even, unlabored, Respiratory pattern is regular, symmetrical. GI: No signs and/or symptoms were reported involving the gastrointestinal system. Musculoskeletal: Range of motion: intact in all extremities. Historical: - Allergies: 10:39 NKDA; tw2 - Home Meds: 10:39 aspirin 81 mg Oral chew 1 tab once daily [Active]; Nexium 20 mg Oral cpDR 1 cap once tw2 daily [Active]; rosuvastatin 10 mg oral tab 1 tab once daily [Active]; metoprolol tartrate 25 mg Oral tab 1 tab once daily [Active]; Plavix 75 mg Oral tab 1 tab once daily [Active]; niacin 500 mg Oral cpER 1 cap once daily [Active]; - PMHx: 10:39 CAD; GERD; High Cholesterol; Hypertension; tw2 - PSHx: 10:39 heart surgery; CABG; tw2 - Immunization history:: Adult Immunizations. - Social history:: Smoking status: . Screenin:44 Abuse screen: Denies threats or abuse. Nutritional screening: No deficits noted. tw2 Tuberculosis screening: No symptoms or risk factors identified. Fall Risk Secondary diagnosis (15 points) impaired mobility. Assessment: 08:11 Reassessment: see triage assessment. tw2 10:44 Pain: Pain does not radiate. Pain began 2 hours ago. tw2 11:01 Reassessment: Patient appears in no apparent distress at this time. No changes from tw2 previously documented assessment. Patient and/or family updated on plan of care and expected duration. Pain level reassessed. Patient is alert, oriented x 3, equal unlabored respirations, skin warm/dry/pink. 12:03 Reassessment: Patient appears in no apparent distress at this time. No changes from tw2 previously documented assessment. Patient and/or family updated on plan of care and expected duration. Pain level reassessed. Patient is alert, oriented x 3, equal unlabored respirations, skin warm/dry/pink. 13:00 Reassessment: Patient appears in no apparent distress at this time. No changes from tw2 previously documented assessment. Patient and/or family updated on plan of care and expected duration. Pain level reassessed. Patient is alert, oriented x 3, equal unlabored respirations, skin warm/dry/pink. 14:03 Reassessment: Patient appears in no apparent distress at this time. No changes from tw2 previously documented assessment. Patient and/or family updated on plan of care and expected duration. Pain level reassessed. Patient is alert, oriented x 3, equal unlabored respirations, skin warm/dry/pink. 15:00 Reassessment: Patient appears in no apparent distress at this time. No changes from tw2 previously documented assessment. Patient and/or family updated on plan of care and expected duration. Pain level reassessed. Patient is alert, oriented x 3, equal unlabored respirations, skin warm/dry/pink. 16:00 Reassessment: Patient appears in no apparent distress at this time. No changes from tw2 previously documented assessment. Patient and/or family updated on plan of care and expected duration. Pain level reassessed. Patient is alert, oriented x 3, equal unlabored respirations, skin warm/dry/pink. 16:48 Reassessment: Dr. Caputo states to repeat troponin now and if negative pt will be dc'd aa5 home per Dr. Hoffman (cardiology), Dr. Caputo states to call him with results when results are available. . Vital Signs: 10:10 BP 166 / 78; Pulse 67; Resp 18; Temp 98.5(O); Pulse Ox 100% on R/A; Weight 76.2 kg (R); tw2 Height 5 ft. 9 in. (175.26 cm); Pain 0/10; 11:00 BP 144 / 68; Pulse 59; Resp 17; Pulse Ox 97% on R/A; tw2 12:03 BP 136 / 59; Pulse 70; Resp 17; Pulse Ox 98% on R/A; tw2 13:00 BP 135 / 80; Pulse 66; Resp 17; Pulse Ox 97% on R/A; tw2 14:04 BP 143 / 71; Pulse 68; Resp 18; Pulse Ox 98% on R/A; tw2 15:00 BP 139 / 72; Pulse 67; Resp 19; Pulse Ox 99% on R/A; tw2 16:00 BP 145 / 66; Pulse 70; Resp 17; Pulse Ox 98% on R/A; tw2 16:53 BP 151 / 66; Pulse 63; Resp 16; Pulse Ox 100% on R/A; tw2 10:10 Body Mass Index 24.81 (76.20 kg, 175.26 cm) tw2 ED Course: 10:10 Patient arrived in ED. tw2 10:10 Niranjan Cruz DO is Attending Physician. ms3 10:10 Bed in low position. Call light in reach. bus monitor on. Pulse ox on. NIBP on. tw2 Warm blanket given. 10:12 Triage completed. tw2 10:29 Giovanna Ackerman, STEPHANIE is Primary Nurse. tw2 10:29 SARS RAPID Sent. tw2 10:38 Arm band placed on. tw2 10:44 Patient maintains SpO2 saturation greater than 95% on room air. tw2 10:59 XRAY Chest (1 view) In Process Unspecified. EDMS 11:01 Adult w/ patient. tw2 13:03 Horace Caputo is Hospitalizing Provider. ms3 16:52 Troponin High Sensitivity Sent. tw2 18:10 No provider procedures requiring assistance completed. tw2 18:26 IV discontinued, intact, bleeding controlled, No redness/swelling at site. Pressure tw2 dressing applied. Administered Medications: No medications were administered Medication: 10:44 VIS not applicable for this client. tw2 Outcome: 13:03 Decision to Hospitalize by Provider. ms3 18:25 Discharged to home via wheelchair, with family. tw2 18:25 Condition: stable 18:25 Discharge instructions given to patient, family, Instructed on discharge instructions, follow up and referral plans. Demonstrated understanding of instructions, follow-up care, pt discharged with [employer] paperwork 18:26 Patient left the ED. tw2 Signatures: Dispatcher [employer] EDMS Nazanin Billy, RN RN aa5 Giovanna Ackerman RN RN tw2 Niranjan Cruz, DO ms3
--- NOTE | 2021-10-21 13:23 | P.HP ---
Patient History Date of Service: 10/21/21 Allergies loratadine [From Claritin-D 12 Hour] Allergy (Intermediate, Verified 12/07/11 06:29) Hives pseudoephedrine sulfate [From Claritin-D 12 Hour] Allergy (Intermediate, Verified 12/07/11 06:29) Hives No Known Allergies Allergy (Uncoded 05/21/15 01:40) Unknown Home Medications: Rosuvastatin Calcium [Crestor] 5 mg PO BEDTIME 12/07/11 Aspirin 81 mg PO DAILY AFTER SUPPER 05/09/16 Clopidogrel Bisulfate [Plavix*] 75 mg PO DAILY AFTER SUPPER 05/09/16 Esomeprazole Magnesium 40 mg PO DAILY AFTER SUPPER 05/09/16 Montelukast Sodium [Singulair] 10 mg PO BEDTIME PRN 05/09/16 Niacin (Inositol Niacinate) [Niacin 500 mg Capsule] 1,000 mg PO BEDTIME 05/09/16 Metoprolol Tartrate [Lopressor*] 25 mg PO BID #60 tab 07/31/19 - Past Medical/Surgical History Diabetic: No -: gerd -: cad -: hyperlipidemia -: htn -: goiter removed -: cabg -: triple bypass, 2008 - Family History Mother -: Stroke Father -: Stroke, Other (see notes) Notes: heart attack Brother -: Stroke - Social History Alcohol use: Yes CD- Drugs: No Caffeine use: Yes Physical Examination - Studies Laboratory Data (last 24 hrs) 10/21/21 10:20: PT 11.5, INR 1.04 10/21/21 10:20: WBC 5.0, Hgb 12.4 L, Hct 36.3 L, Plt Count 160 10/21/21 10:20: Sodium 140, Potassium 4.0, BUN 19 H, Creatinine 1.13, Glucose 110 H 10/21/21 10:11: PT Cancelled, INR Cancelled 10/21/21 10:11: WBC Cancelled, Hgb Cancelled, Hct Cancelled, Plt Count Cancelled 10/21/21 10:11: Sodium Cancelled, Potassium Cancelled, BUN Cancelled, Creatinine Cancelled, Glucose Cancelled Assessment and Plan - Advance Directives Does patient have a Living Will: Yes Does patient have a Durable POA for Healthcare: Yes
--- NOTE | 2021-10-21 17:33 | P.SSS ---
Patient History Date of Service: 10/21/21 Reason for admission: Chest pain History of Present Illness: 81-year-old gentleman with a history of coronary artery disease, hypertension and hyperlipidemia presented to the emergency department with a complaint of intermittent chest pain, each episode lasting only seconds, no associated shortness of breath. Patient denies any cough or wheezing. Son reports he ate a meal of hot dog and a chili, no known relieving or aggravating factors. Initial troponin in the ED is negative, EKG demonstrated sinus rhythm with right bundle branch block, chest x-ray unremarkable. Dr. Merchant certified marine mechanic was contacted who recommended trending his troponin, discharge to troponin trended negative x 2 and follow-up with him in the office for further outpatient work- up. Allergies loratadine [From Claritin-D 12 Hour] Allergy (Intermediate, Verified 12/07/11 06:29) Hives pseudoephedrine sulfate [From Claritin-D 12 Hour] Allergy (Intermediate, Verified 12/07/11 06:29) Hives No Known Allergies Allergy (Uncoded 05/21/15 01:40) Unknown Home Medications: Rosuvastatin Calcium [Crestor] 5 mg PO BEDTIME 12/07/11 Aspirin 81 mg PO DAILY AFTER SUPPER 05/09/16 Clopidogrel Bisulfate [Plavix*] 75 mg PO DAILY AFTER SUPPER 05/09/16 Esomeprazole Magnesium 40 mg PO DAILY AFTER SUPPER 05/09/16 Montelukast Sodium [Singulair] 10 mg PO BEDTIME PRN 05/09/16 Niacin (Inositol Niacinate) [Niacin 500 mg Capsule] 1,000 mg PO BEDTIME 05/09/16 Metoprolol Tartrate [Lopressor*] 25 mg PO BID #60 tab 07/31/19 - Past Medical/Surgical History Diabetic: No -: gerd -: cad -: hyperlipidemia -: htn -: goiter removed -: cabg -: triple bypass, 2008 - Family History Mother -: Stroke Father -: Stroke, Other (see notes) Notes: heart attack Brother -: Stroke - Social History Alcohol use: Yes CD- Drugs: No Caffeine use: Yes Review of Systems Other: Except as documented, all other systems reviewed and negative. Physical Examination - Physical Exam General: Alert, In no apparent distress, Oriented x3, Obese HEENT: Atraumatic, PERRLA, Mucous membr. moist/pink, EOMI, Sclerae nonicteric Neck: Supple, 2+ carotid pulse no bruit, JVD not distended, No Thyromegaly Respiratory: Clear to auscultation bilaterally, Normal air movement Cardiovascular: No edema, Regular rate/rhythm, Normal S1 S2, No murmurs Capillary refill: <2 Seconds Gastrointestinal: Normal bowel sounds, Soft and benign, Non-distended, No tenderness Musculoskeletal: No swelling, No tenderness Integumentary: No rashes, No cyanosis Neurological: Normal speech, Normal strength at 5/5 x4 extr, Cranial nerves 3-12 intact Lymphatics: No axilla or inguinal lymphadenopathy - Studies Laboratory Data (last 24 hrs) 10/21/21 10:20: PT 11.5, INR 1.04 10/21/21 10:20: WBC 5.0, Hgb 12.4 L, Hct 36.3 L, Plt Count 160 10/21/21 10:20: Sodium 140, Potassium 4.0, BUN 19 H, Creatinine 1.13, Glucose 110 H 10/21/21 10:11: PT Cancelled, INR Cancelled 10/21/21 10:11: WBC Cancelled, Hgb Cancelled, Hct Cancelled, Plt Count Cancelled 10/21/21 10:11: Sodium Cancelled, Potassium Cancelled, BUN Cancelled, Creatinine Cancelled, Glucose Cancelled - Diagnosis (Problem(s)) (1) Chest pain Onset Date: 05/09/16 Current Visit: No Status: Acute (2) Dyslipidemia Current Visit: No Status: Acute (3) History of coronary artery bypass graft x 2 Current Visit: No Status: Acute Treatment Summary: Patient placed under observation. Troponin trended x2 negative. Patient evaluated by cardiology recommended discharge if his troponin trend negative and follow-up with him in the office for further outpatient work-up. Patient has been asymptomatic, vitals stable. He is deemed stable for discharge - Disposition Disposition: ROUTINE DISCHARGE Condition: FAIR
--- NOTE | 2021-10-21 19:26 | CON ---
Date of Consultation: 10/21/2021 Reason For Consultation: Chest pain. History Of Present Illness: An 81-year-old male with history of coronary artery disease status post 3-vessel bypass in the past. Last stress test he had was in 2019, presented with chest pain and that is short-lived, sharp, lasts for few seconds, goes away. He has been happening since earlier, so he presented to the emergency room. It is not exertional. No nausea, vomiting, diarrhea, or diaphores is. Past Medical History: Coronary artery disease, dyslipidemia, hypertension, acid reflux. Medications: Refer to reconciliation sheet for detailed list. Allergies: IODINE AND SULFA. Past Surgical History: Coronary artery bypass surgery. Family History: No premature coronary artery disease or cancer. Social History: Does not smoke or drink. Does not use any drugs. Review of Systems: All systems reviewed and they were negative except for mentioned in HPI. Physical Examination: Vital Signs: Reviewed. Head and Neck: Pupils are equal, reactive to light. Intact eye movements. No JVD. No cervical lym phadenopathy. Neck is supple. Thyroid is not enlarged. Lungs: Clear to auscultation bilaterally. No rhonchi, wheezing, or crackles. No accessory muscle u se. Heart: Regular rate and rhythm. No extra sounds. Abdomen: Soft, nontender. Bowel sounds positive. No organomegaly. No masses or hernia. No rigidi ty or rebound. Extremities: No clubbing or cyanosis. Intact pulses. Skin: No rash. Neurologic: Alert, awake, oriented x3. No acute focal deficits appreciated. Investigations: Creatinine 1.13, hemoglobin is 12.4, white blood cell count is 5, and troponin is ne gative, 7.5. EKG without acute specific abnormalities. Assessment And Recommendations: 1.Chest pain, atypical. First cardiac enzymes negative. Recheck a second cardiac enzyme at 4:05 p. m. If it is negative, then the patient can be released and we will arrange for him to have a stress test and then echo as an outpatient. No need for any inpatient workup and the patient does not need to stay overnight if troponin is negative. 2.Hypertension. Blood pressure is acceptable. Continue home medications. 3.Dyslipidemia. Continue statins. SR/MODL Voice ID: [id number] Report ID: [id number]
[2021-10-21 19:42] VITALS: TEMP 98.5
[2021-10-21 19:59] VITALS: BP 151/66; O2SAT 100
--- NOTE | 2021-10-22 13:33 | EKG ---
Test Date: 2021-10-21 Test Time: 10:07:50 Er Physician: CHITO MEASUREMENT RESULTS: Intervals: Rate: 64 SC: 218 QRSD: 146 QT: 452 QTc: 466 [place]: P: 73 SC: 218 QRS: -54 T: 76 INTERPRETIVE STATEMENTS: Sinus rhythm with 1st degree AV block with premature supraventricular complexes Left axis deviation Right bundle branch block Abnormal ECG Compared to ECG 07/31/2019 03:31:27 First degree AV block now present Left-axis deviation now present Left anterior fascicular block no longer present Bifascicular block no longer present Electronically Signed On 10-22-21 13:32:33 CDT by Azam Merchant
== END 2021-10-21 18:23 | disposition home or self-care (01) ==
LOC: ER 10:04 → ERHOLD 13:11
PROVIDERS: ADMIT Internal Medicine; ATTEND Internal Medicine
DX: R07.89 Other chest pain (principal); I25.10 Atherosclerotic heart disease of native coronary artery without angina pectoris; E78.5 Hyperlipidemia, unspecified; I10 Essential (primary) hypertension; I45.10 Unspecified right bundle-branch block; K21.9 Gastro-esophageal reflux disease without esophagitis; Z95.1 Presence of aortocoronary bypass graft; Z79.02 Long term (current) use of antithrombotics/antiplatelets; Z79.899 Other long term (current) drug therapy; Z88.2 Allergy status to sulfonamides; Z88.8 Allergy status to other drugs, medicaments and biological substances; Z91.041 Radiographic dye allergy status; Z20.822 Contact with and (suspected) exposure to COVID-19; Z82.3 Family history of stroke; Z82.49 Family history of ischemic heart disease and other diseases of the circulatory system
CPT/HCPCS: 36415; 71045; 80048; 84484; 85025; 85610; 87811; 93005

== ENCOUNTER 2022-09-07 21:35 | Observation (INO) | payer OTHER, BC ==
--- NOTE | 2022-09-07 22:18 | RAD REPORT ---
EXAM DESCRIPTION: RAD - Chest Single View - 09/07/2022 10:10 pm CLINICAL HISTORY: CHEST PAIN Chest pain. COMPARISON: Chest Single View dated 10/21/2021; Chest Single View dated 07/31/2019; Chest Single View dated 05/09/2016; CHEST SINGLE VIEW dated 05/20/2015 FINDINGS: Portable technique limits examination quality. The lungs are grossly clear. The heart is moderately enlarged. No displaced fractures.Sternotomy wire s present. IMPRESSION: No acute intrathoracic process suspected.
[2022-09-07] MEDS ORDERED: NA CHLORIDE 0.9% 1,000 ML ONE (22:59)
[2022-09-07 23:01] LABS: Absolute Lymphocytes (CBC) 1.7 K/uL (0.7-4.9); Hematocrit 33.8 % (39.6-49.0); Lymphocytes % 28.1 % (15.3-44.8); MCV 95.1 fL (80-100); MPV 8.3 fL (7.6-11.3); RBC Red Blood Cell Count 3.55 M/uL (4.33-5.43)
[2022-09-07 23:19] LABS: Albumin 3.2 g/dL (3.4-5.0); Bilirubin Direct 0.1 mg/dL (0-0.2); Bilirubin Indirect, Calculated 0.3 mg/dL (0.2-0.8); Bilirubin Total 0.4 mg/dL (0.2-1.0); Magnesium 1.9 mg/dL (1.6-2.4); Potassium 3.9 mEq/L (3.5-5.1); Protein, Total 6.9 g/dL (6.4-8.2); Troponin High Sensitivity 9.7 pg/mL (<58.9)
[2022-09-08 00:36] LABS: Protime INR 0.98
--- NOTE | 2022-09-08 01:24 | P.HP ---
Certification for Inpatient Patient admitted to: Observation With expected LOS: <2 Midnights Patient will require the following post-hospital care: None Practitioner: I am a practitioner with admitting privileges, knowledge of patient current condition, hospital course, and medical plan of care. Services: Services provided to patient in accordance with Admission requirements found in Title 42 Section 412.3 of the Code of Federal Regulations Patient History Date of Service: 09/08/22 Primary Care Provider: Sabrina Reason for admission: Chest Pain History of Present Illness: Mr. Worrell is an 82-year-old male with past medical history of coronary artery disease s/p CABG x 2, hypertension and hyperlipidemia who presented to the emergency department via EMS with complaints of intermittent stabbing chest pain. Initial troponin in the ED is negative, EKG demonstrated sinus rhythm with right bundle branch block, chest x-ray unremarkable. EMS administered aspirin. He was given several pain medications in the ED without resolution of symptoms. CT aortagram negative. ED provider wishes to admit patient for further management. Allergies loratadine [From Claritin-D 12 Hour] Allergy (Intermediate, Verified 12/07/11 06:29) Hives pseudoephedrine sulfate [From Claritin-D 12 Hour] Allergy (Intermediate, Verified 12/07/11 06:29) Hives No Known Allergies Allergy (Uncoded 05/21/15 01:40) Unknown Home medications list reviewed: Yes Home Medications: Rosuvastatin Calcium [Crestor] 5 mg PO BEDTIME 12/07/11 Aspirin 81 mg PO DAILY AFTER SUPPER 05/09/16 Clopidogrel Bisulfate [Plavix*] 75 mg PO DAILY AFTER SUPPER 05/09/16 Esomeprazole Magnesium 40 mg PO DAILY AFTER SUPPER 05/09/16 Montelukast Sodium [Singulair] 10 mg PO BEDTIME PRN 05/09/16 Niacin (Inositol Niacinate) [Niacin 500 mg Capsule] 1,000 mg PO BEDTIME 05/09/16 Metoprolol Tartrate [Lopressor*] 25 mg PO BID #60 tab 07/31/19 - Past Medical/Surgical History Diabetic: No -: GERD -: Coronary Artery Disease -: Hyperlipidemia -: Hypertension -: Goiter removed -: CABG -: Triple bypass, 2008 Psychosocial/ Personal History: Patient is . - Family History Mother -: Stroke Father -: Stroke, Other (see notes) Notes: heart attack Brother -: Stroke - Social History Smoking Status: Never smoker Alcohol use: Yes CD- Drugs: No Caffeine use: Yes Place of Residence: Home Review of Systems Cardiovascular: Chest Pain Physical Examination - Vital Signs Temperature: 98.3 F Blood Pressure: 153/72 Pulse: 66 Respirations: 18 Pulse Ox (%): 97 - Physical Exam General: Alert, In no apparent distress HEENT: Atraumatic, EOMI, Sclerae nonicteric Neck: Supple, 2+ carotid pulse no bruit Respiratory: Clear to auscultation bilaterally, Normal air movement Cardiovascular: Regular rate/rhythm, Normal S1 S2 Gastrointestinal: Normal bowel sounds, No tenderness Musculoskeletal: No tenderness Integumentary: No rashes Neurological: Normal speech, Normal affect - Studies Laboratory Data (last 24 hrs) 09/07/22 22:48: Lipase 52 09/07/22 22:48: PT 10.8, INR 0.98 09/07/22 22:48: WBC 6.20, Hgb 11.3 L, Hct 33.8 L, Plt Count 139 L 09/07/22 22:48: Sodium 139, Potassium 3.9, BUN 18, Creatinine 1.01, Glucose 91, Magnesium 1.9, Total Bilirubin 0.4, AST 22, ALT 30, Alkaline Phosphatase 56 Assessment and Plan - Problems (Diagnosis) (1) Coronary artery disease Current Visit: Yes Status: Acute Qualifiers: Coronary Disease-Associated Artery/Lesion type: bypass graft [place] vs. transplanted heart: [place] heart Associated angina: with other forms of angina Qualified Code(s): I25.708 - Atherosclerosis of coronary artery bypass graft(s), unspecified, with other forms of angina pectoris (2) Chest pain Current Visit: Yes Status: Acute Qualifiers: Chest pain type: unspecified Qualified Code(s): R07.9 - Chest pain, unspecified (3) Hypertension Current Visit: Yes Status: Chronic Qualifiers: Hypertension type: primary hypertension Qualified Code(s): I10 - Essential (primary) hypertension (4) Dyslipidemia Current Visit: Yes Status: Chronic - Plan Patient is admitted for observation for ACS rule out. Consult cardiology. Monitor on telemetry. Obtain echocardiogram, lipid panel, TSH. I suspect chest pain is noncardiac in nature, as it is intermittent, described as spasming, and improved with IV fluids. Aspirin and atorvastatin daily. Monitor and replete electrolytes per protocol. Reconcile and continue home medications. Lovenox for VTE prophylaxis. Full code. Discharge Plan: Home Plan to discharge in: 24 Hours - Advance Directives Does patient have a Living Will: Yes Does patient have a Durable POA for Healthcare: Yes - Code Status/Comfort Care Code Status Assessed: Yes Code Status: Full Code Physician Review: Patient Assessed, Agree with Above Assessment and Plan Critical Care: No Time Spent Managing Pts Care (In Minutes): 50
--- NOTE | 2022-09-08 01:31 | ER ---
Nurse's Notes [facility] Name: Jovany Worrell Age: 82 yrs Sex: Male : 1940 Arrival Date: 09/07/2022 Time: 21:35 Bed 4 Private MD: Diagnosis: Chest pain, unspecified Presentation: 09/07 21:50 Chief complaint: Patient states: midsternal non radiating intermittent stabbing chest kl pain since this am. Coronavirus screen: Vaccine status: Patient reports receiving the 2nd dose of the covid vaccine. Ebola Screen: Patient negative for fever greater than or equal to 101.5 degrees Fahrenheit, and additional compatible Ebola Virus Disease symptoms. Initial Sepsis Screen: Does the patient meet any 2 criteria? No. Patient's initial sepsis screen is negative. Does the patient have a suspected source of infection? No. Patient's initial sepsis screen is negative. Risk Assessment: Do you want to hurt yourself or someone else? Patient reports no desire to harm self or others. Care prior to arrival: Medication(s) given: ASA, 325 mg, IV initiated. 20 GA, in the right antecubital area. 21:50 Method Of Arrival: EMS: [facility] 21:50 Acuity: SHO 3 kl 09/08 01:54 Onset of symptoms was September 07, 2022. lg3 Triage Assessment: 09/07 21:53 General: Appears in no apparent distress. distressed, Behavior is calm, cooperative. kl Pain: Denies pain. Cardiovascular: Capillary refill < 3 seconds Rhythm is sinus rhythm. Historical: - Allergies: 21:53 NKDA; kl - PMHx: 21:53 CAD; GERD; High Cholesterol; Hypertension; kl - PSHx: 21:53 CABG; heart surgery; kl - Immunization history:: Adult Immunizations not up to date. - Social history:: Smoking status: Patient denies any tobacco usage or history of. - Family history:: not pertinent. Screenin:52 [facility] ED Fall Risk Assessment (Adult) History of falling in the last 3 months, lg3 including since admission No falls in past 3 months (0 pts). Abuse screen: Denies threats or abuse. Denies injuries from another. Nutritional screening: No deficits noted. Tuberculosis screening: No symptoms or risk factors identified. Assessment: 22:52 General: Appears in no apparent distress. uncomfortable, Behavior is calm, cooperative. lg3 Pain: Complains of pain in mid-sternal area Pain radiates to back Noted to be grimacing, resistant to movement. Neuro: No deficits noted. [place] Agitation-Sedation Scale (RASS): 0 - Alert and Calm Level of Consciousness is awake, alert, obeys commands, Oriented to person, place, time, situation. Cardiovascular: No deficits noted. Reports chest pain, Capillary refill < 3 seconds Clubbing of nail beds is absent JVD is absent Patient's skin is warm and dry. Respiratory: No deficits noted. Airway is patent Respiratory effort is even, unlabored, Respiratory pattern is regular, symmetrical. GI: No deficits noted. No signs and/or symptoms were reported involving the gastrointestinal system. Abdomen is flat, non-distended. : No deficits noted. No signs and/or symptoms were reported regarding the genitourinary system. EENT: No deficits noted. No signs and/or symptoms were reported regarding the EENT system. Derm: No deficits noted. No signs and/or symptoms reported regarding the dermatologic system. Skin is intact, is healthy with good turgor, Skin is dry, Skin is normal, Skin temperature is warm. Musculoskeletal: No deficits noted. No signs and/or symptoms reported regarding the musculoskeletal system. Circulation, motion, and sensation intact. Range of motion: intact in all extremities, Reports cramping in chest and back. 09/08 00:05 Reassessment: Patient appears in no apparent distress at this time. No changes from lg3 previously documented assessment. Patient is alert, oriented x 3, equal unlabored respirations, skin warm/dry/pink. Patient states symptoms have not improved. 00:54 Reassessment: No changes from previously documented assessment. Patient and/or family vc1 updated on plan of care and expected duration. Pain level reassessed. Vital Signs: 09/07 21:50 BP 161 / 80; Pulse 64; Resp 18; Temp 98.3; Pulse Ox 99% on R/A; Weight 73.94 kg (R); kl Height 5 ft. 9 in. ; Pain 0/10; 22:52 BP 161 / 72; Pulse 65; Resp 21; Pulse Ox 100% on R/A; lg3 09/08 00:05 BP 177 / 80; Pulse 71; Resp 19 S; Pulse Ox 99% ; lg3 00:30 BP 153 / 72; Pulse 66; Resp 18; Pulse Ox 97% ; vc1 01:53 BP 159 / 72; Pulse 69; Resp 20 S; Pulse Ox 96% on R/A; lg3 09/07 21:50 Body Mass Index 24.07 (73.94 kg, 175.26 cm) 09/07 21:50 Pain Scale: Adult NIH Stroke Scale Scores: 05:29 NIHSS Score: 0 sp4 ED Course: 09/07 21:46 Patient arrived in ED. sb4 21:47 Good Wang MD is Attending Physician. sp4 21:53 Triage completed. 21:59 Radiology exam delayed due to lab results not completed at this time. (BUN/Creatinine) jg10 IV insertion attempt and/or patient not having appropriate IV at this time. 22:12 XRAY Chest (1 view) In Process Unspecified. EDMS 22:41 Larisa Dickson RN is Primary Nurse. lg3 22:52 Patient has correct armband on for positive identification. Placed in gown. Bed in low lg3 position. Call light in reach. Side rails up X 1. Client placed on continuous cardiac and pulse oximetry monitoring. NIBP monitoring applied. youth nutritional monitor on. Door closed. Noise minimized. Warm blanket given. Family accompanied patient. 22:52 Arm band placed on right wrist. lg3 22:52 Maintain EMS IV. Dressing intact. Good blood return noted. Site clean \T\ dry. Gauge \T\ lg 3 site: 20RAC. 22:57 Lipase Sent. lg3 23:52 CT Aorta for Dissection In Process Unspecified. EDUT 09/08 01:30 Satinder Galvan MD is Hospitalizing Provider. sb4 02:22 No provider procedures requiring assistance completed. Patient admitted, IV remains in lg3 place. intact, No redness/swelling at site. Administered Medications: 09/07 23:07 Drug: NS 0.9% IV 1000 ml Route: IV; Rate: 125 ml/hr; Site: right antecubital; lg3 09/08 02:34 Follow up: IV Status: Infusion continued upon admission lg3 01:50 Drug: metoCLOPramide IVP 10 mg Route: IVP; Site: right antecubital; vc1 02:28 Follow up: Response: No adverse reaction lg3 01:50 Drug: Nitroglycerin Transdermal Ointment 2 % 0.5 inches Route: Transdermal; Site: vc1 anterior chest wall; 02:28 Follow up: Response: No adverse reaction; Marked relief of symptoms lg3 01:51 Drug: Diazepam IVP 5 mg Route: IVP; Site: right antecubital; vc1 02:29 Follow up: Response: No adverse reaction; RASS: Drowsy (-1) lg3 01:51 Drug: Dicyclomine IM 20 mg Route: IM; Site: left gluteus; vc1 02:29 Follow up: Response: No adverse reaction lg3 Medication: 01:54 VIS not applicable for this client. lg3 Outcome: 01:30 Decision to Hospitalize by Provider. sb4 02:28 Admitted to Med/surg accompanied by tech, via wheelchair, room 230, Report called to [facility] 02:28 Condition: stable 02:28 Instructed on the need for admit, Demonstrated understanding of instructions. 02:54 Patient left the ED. lg3 NIH Stroke Scale - NIH Stroke Score Date: 09/08/2022 Time: 05:29 Total Score = 0 10. Dysarthria (speech clarity - read or repeat words) - 0(Normal) 11. Extinction and Inattention (visual/tactile/auditory/spatial/personal) - 0(No abnormality) 1a. Level of Consciousness (LOC) - 0(Alert) 1b. Level of Consciousness (LOC) (Month \T\ Age) - 0(Both) 1c. LOC Commands (Open \T\ Closes Eyes/Frame Cleaner) - 0(Both) 2. Best Gaze (Lateral Gaze Paresis) - 0(Normal) 3. Visual Field Loss - 0(No visual loss) 4. Facial Palsy - 0(Normal) 5a. Left Arm: Motor (10-second hold) - 0(No drift) 5b. Right Arm: Motor (10-second hold) - 0(No drift) 6a. Left Leg: Motor (5-second hold - always test supine) - 0(No drift) 6b. Right Leg: Motor (5-second hold - always test supine) - 0(No drift) 7. Limb Ataxia (finger/nose \T\ heel/mack - test with eyes open) - 0(Absent) 8. Sensory Loss (pinprick arms/legs/face) - 0(Normal) 9. Best Language: Aphasia (description/naming/reading) - 0(No aphasia) Initials: sp4 Signatures: Dispatcher [employer] EDYazmin Acevedo RN RN Larisa Mckeon RN RN lg3 Belinda Bailey RN RN vc1 Pavithra Sepulveda, PA-C PA-C sb4 Kathi Giles0 oGod Wang MD MD sp4 Corrections: (The following items were deleted from the chart) 09/07 23:03 22:57 CREATINE PHOSPHOKINASE+C.LAB.BRZ drawn and sent. lg3 EDMS
--- NOTE | 2022-09-08 01:31 | EDPHYS ---
Physician Documentation [facility] Name: Jovany Worrell Age: 82 yrs Sex: Male : 1940 Arrival Date: 09/07/2022 Time: 21:35 Bed 4 Private MD: ED Physician Good Wang HPI: 09/07 21:47 This 82 yrs old Male presents to ER via Unassigned with complaints of chest sp4 pain . 09/08 05:27 82-year-old male with past medical history of coronary artery disease, GERD, high sp4 cholesterol, hypertension history of prior CABG. Presents with acute onset of spasmodic stabbing type chest pain starting at rest estimated 2 hours prior to arrival.. Historical: - Allergies: 09/07 21:53 NKDA; kl - PMHx: 21:53 CAD; GERD; High Cholesterol; Hypertension; kl - PSHx: 21:53 CABG; heart surgery; kl - Immunization history:: Adult Immunizations not up to date. - Social history:: Smoking status: Patient denies any tobacco usage or history of. - Family history:: not pertinent. ROS: 09/08 05:27 Constitutional: Negative for fever, chills, and weight loss, Eyes: Negative for injury, sp4 pain, redness, and discharge, ENT: Negative for injury, pain, and discharge, Neck: Negative for injury, pain, and swelling, Cardiovascular: Negative for palpitations, and edema, positive for chest pain Respiratory: Negative for shortness of breath, cough, wheezing, and pleuritic chest pain, Abdomen/GI: Negative for abdominal pain, nausea, vomiting, diarrhea, and constipation, Back: Negative for injury and pain, : Negative for injury, bleeding, discharge, and swelling, MS/Extremity: Negative for injury and deformity, Skin: Negative for injury, rash, and discoloration, Neuro: Negative for headache, weakness, numbness, tingling, and seizure, Psych: Negative for depression, anxiety, Allergy/Immunology: Negative for hives, rash, and allergies Endocrine: Negative for neck swelling, polydipsia, polyuria, polyphagia, and weight changes Hematologic/Lymphatic: Negative for swollen nodes, abnormal bleeding, and unusual bruising Exam: 05:27 Constitutional: This is a well developed, well nourished patient who is awake, alert, sp4 and in no acute distress. Head/Face: Normocephalic, atraumatic. Eyes: Pupils equal round and reactive to light, extra-ocular motions intact. Lids and lashes normal. Conjunctiva and sclera are not injected. Cornea within normal limits. Periorbital areas with no swelling, redness, or edema. ENT: Nares patent. No nasal discharge, no septal abnormalities noted. Tympanic membranes are normal and external auditory canals are clear. Oropharynx with no redness, swelling, or masses, exudates, or evidence of obstruction, uvula midline. Mucous membranes moist. Neck: Trachea midline, no thyromegaly or masses palpated, and no cervical lymphadenopathy. Supple, full range of motion without nuchal rigidity, or vertebral point tenderness. Chest/axilla: Normal chest wall appearance and motion. Nontender with no deformity. No lesions are appreciated. Cardiovascular: Regular rate and rhythm with a normal S1 and S2. No gallops, murmurs, or rubs. Normal PMI, no JVD. No pulse deficits. Respiratory: Lungs have equal breath sounds bilaterally, clear to auscultation and percussion. No rales, rhonchi or wheezes noted. No increased work of breathing, no retractions or nasal flaring. Abdomen/GI: Soft, non-tender, with normal bowel sounds. No distension or tympany. No guarding or rebound. No evidence of tenderness throughout. Back: No spinal tenderness. No costovertebral tenderness. Skin: Warm, dry with normal turgor. Normal color with no rashes, no lesions, and no evidence of cellulitis. MS/ Extremity: Pulses equal, no cyanosis. Neurovascular intact. Full, normal range of motion. Neuro: Awake and alert, GCS 15, oriented to person, place, time, and situation. Cranial nerves II-XII grossly intact. Motor strength 5/5 in all extremities. Sensory grossly intact. Psych: Awake, alert, with orientation to person, place and time. Behavior, mood, and affect are within normal limits 05:27 ECG was reviewed by the Attending Physician. EKG time 2143, normal normal sinus rhythm with a rate of 64 with sinus arrhythmia, right bundle branch block, otherwise unremarkable.. Vital Signs: 09/07 21:50 BP 161 / 80; Pulse 64; Resp 18; Temp 98.3; Pulse Ox 99% on R/A; Weight 73.94 kg (R); Height 5 ft. 9 in. ; Pain 0/10; 22:52 BP 161 / 72; Pulse 65; Resp 21; Pulse Ox 100% on R/A; lg3 09/08 00:05 BP 177 / 80; Pulse 71; Resp 19 S; Pulse Ox 99% ; lg3 00:30 BP 153 / 72; Pulse 66; Resp 18; Pulse Ox 97% ; vc1 01:53 BP 159 / 72; Pulse 69; Resp 20 S; Pulse Ox 96% on R/A; lg3 09/07 21:50 Body Mass Index 24.07 (73.94 kg, 175.26 cm) 09/07 21:50 Pain Scale: Adult NIH Stroke Scale Scores: 05:29 NIHSS Score: 0 sp4 MDM: 09/07 21:48 Patient medically screened. sp4 09/08 05:29 Differential Diagnosis altered mental status, sepsis, CAD, acute ACS,. Data reviewed: sp4 vital signs, nurses notes, EMS record, old medical records, lab test result(s), EKG, radiologic studies, CT scan, plain films. Consideration of Admission/Observation Patient was admitted/placed on observation. Escalation of care including admission/observation considered. Management of patient was discussed with the following: Hospitalist: Discussed with admission team.. ED course: CLINICAL HISTORY: CHEST PAIN Chest pain. COMPARISON: Chest Single View dated 10/21/2021; Chest Single View dated 07/31/2019; Chest Single View dated 05/09/2016; CHEST SINGLE VIEW dated 05/20/2015 FINDINGS: Portable technique limits examination quality. The lungs are grossly clear. The heart is moderately enlarged. No displaced fractures.Sternotomy wires present. IMPRESSION: No acute intrathoracic process suspected. . ED course: CTA Aorta - CHEST, ABDOMEN and PELVIS: Intraperitoneal space: No significant fluid collection. No free air. Bones/joints: No acute fracture. No dislocation. Soft tissues: Normal body wall soft tissue. Lymph nodes: No lymphadenopathy. IMPRESSION: 1. No aortic aneurysm or dissection. 2. Severe sigmoid diverticulosis without acute diverticulitis.. 05:29 ED course: Patient was discussed with admission hospitalist and admitted for 4 investigation of atypical chest pain.. 09/07 21:48 Order name: Basic Metabolic Panel; Complete Time: :03 sp4 09/07 21:48 Order name: CBC with Diff; Complete Time: 01:03 sp4 09/07 21:48 Order name: LFT's; Complete Time: 01:03 sp4 09/07 21:48 Order name: Magnesium; Complete Time: 01:03 sp4 09/07 21:48 Order name: NT PRO-BNP; Complete Time: 01:03 sp4 09/07 21:48 Order name: PT-INR; Complete Time: 01:03 sp4 09/07 21:48 Order name: Troponin HS; Complete Time: 01:03 sp4 09/07 21:55 Order name: Lipase; Complete Time: 01:03 sp4 09/07 23:03 Order name: Creatine Phosphokinase; Complete Time: 01:03 EDVA 09/07 21:48 Order name: XRAY Chest (1 view); Complete Time: 01:03 sp4 09/07 21:55 Order name: CT Aorta for Dissection [facility] 09/07 21:48 Order name: EKG; Complete Time: 21:49 sp4 09/07 21:48 Order name: Cardiac monitoring; Complete Time: 22:57 sp4 09/07 21:48 Order name: EKG - Nurse/Tech; Complete Time: 22:38 sp4 09/07 21:48 Order name: IV Saline Lock; Complete Time: 22:57 sp4 09/07 21:48 Order name: Labs collected and sent; Complete Time: 22:57 sp4 09/07 21:48 Order name: O2 Per Protocol; Complete Time: 22:57 4 09/07 21:48 Order name: O2 Sat Monitoring; Complete Time: 22:57 sp4 EC:27 Rate is 64 beats/min. Rhythm is irregular, Sinus arrythmia. QRS [place] is Normal. DE sp4 interval is normal. QRS interval is prolonged. QT interval is normal. T waves are Normal. No ST changes noted. Clinical impression: No evidence of ischemia. Interpreted by me. Administered Medications: 09/07 23:07 Drug: NS 0.9% IV 1000 ml Route: IV; Rate: 125 ml/hr; Site: right antecubital; lg3 09/08 02:34 Follow up: IV Status: Infusion continued upon admission lg3 01:50 Drug: metoCLOPramide IVP 10 mg Route: IVP; Site: right antecubital; vc1 02:28 Follow up: Response: No adverse reaction lg3 01:50 Drug: Nitroglycerin Transdermal Ointment 2 % 0.5 inches Route: Transdermal; Site: vc1 anterior chest wall; 02:28 Follow up: Response: No adverse reaction; Marked relief of symptoms lg3 01:51 Drug: Diazepam IVP 5 mg Route: IVP; Site: right antecubital; vc1 02:29 Follow up: Response: No adverse reaction; RASS: Drowsy (-1) lg3 01:51 Drug: Dicyclomine IM 20 mg Route: IM; Site: left gluteus; vc1 02:29 Follow up: Response: No adverse reaction lg3 Disposition Summary: 09/08/22 01:30 Hospitalization Ordered Hospitalization Status: Observation sb4 Provider: Satinder Galvan Location: Telemetry/MedSurg (observation) sb4 Condition: Fair sb4 Problem: new sb4 Symptoms: are unchanged sb4 Bed/Room Type: Standard sb4 Room Assignment: 230(09/08/22 02:07) vc1 Diagnosis - Chest pain, unspecified sb4 Forms: - Medication Reconciliation Form sb4 - SBAR form sb4 NIH Stroke Scale - NIH Stroke Score Date: 09/08/2022 Time: 05:29 Total Score = 0 10. Dysarthria (speech clarity - read or repeat words) - 0(Normal) 11. Extinction and Inattention (visual/tactile/auditory/spatial/personal) - 0(No abnormality) 1a. Level of Consciousness (LOC) - 0(Alert) 1b. Level of Consciousness (LOC) (Month \T\ Age) - 0(Both) 1c. LOC Commands (Open \T\ Closes Eyes/Manager Sql) - 0(Both) 2. Best Gaze (Lateral Gaze Paresis) - 0(Normal) 3. Visual Field Loss - 0(No visual loss) 4. Facial Palsy - 0(Normal) 5a. Left Arm: Motor (10-second hold) - 0(No drift) 5b. Right Arm: Motor (10-second hold) - 0(No drift) 6a. Left Leg: Motor (5-second hold - always test supine) - 0(No drift) 6b. Right Leg: Motor (5-second hold - always test supine) - 0(No drift) 7. Limb Ataxia (finger/nose \T\ heel/mack - test with eyes open) - 0(Absent) 8. Sensory Loss (pinprick arms/legs/face) - 0(Normal) 9. Best Language: Aphasia (description/naming/reading) - 0(No aphasia) Initials: sp4 Signatures: Dispatcher [employer] EDVA Yazmin Ugalde RN RN Angi Matias RN RN cg Larisa Dickson RN RN lg3 Belinda Baliey RN RN vc1 Pavithra Sepulveda PA-C PA-C sb4 Good Wang MD MD sp4 Corrections: (The following items were deleted from the chart) 09/07 23:03 22:51 CREATINE PHOSPHOKINASE+C.LAB.BRZ ordered. [facility] 09/08 01:52 01:30 sb4 cg 02:03 01:52 201 cg cg 02:07 02:03 cg vc1
[2022-09-08] MEDS ORDERED: NITROGLYCERIN 1 GM PKT TD ONE (01:42)
[2022-09-08] MEDS ORDERED: DIAZEPAM 10 MG/2 ML INJ SYRINGE ONE (01:43)
[2022-09-08] MEDS ORDERED: METOCLOPRAMIDE 10 MG/2mL INJ ONE (01:43)
[2022-09-08] MEDS ORDERED: DICYCLOMINE HCL 20 MG/2 ML AMP IM ONE (01:44)
[2022-09-08] MEDS ORDERED: NA CHLORIDE 0.9% 50 ML ONE (01:44)
[2022-09-08 03:06] VITALS: O2SAT 96
[2022-09-08] MEDS ORDERED: ONDANSETRON 4 MG/2 ML VIAL IV PRN (03:16)
[2022-09-08] MEDS ORDERED: CYCLOBENZAPRINE 10 MG TAB PO PRN (03:16)
[2022-09-08] MEDS ORDERED: SIMETHICONE 80 MG TAB PO PRN (03:16)
[2022-09-08] MEDS ORDERED: ACETAMINOPHEN 500 MG TAB PO PRN (03:16)
[2022-09-08 03:23] VITALS: BMI 24.7
[2022-09-08 08:50] VITALS: BP 119/66; TEMP 97.6
[2022-09-08] MEDS ORDERED: ENOXAPARIN 40 MG/0.4 ML SQ SCH (09:00)
[2022-09-08] MEDS ORDERED: ASPIRIN 81 MG CHEWABLE TABLET PO SCH (09:00)
--- NOTE | 2022-09-08 12:35 | EKG ---
Test Date: 2022-09-07 Test Time: 21:43:30 Cover Seamer: WENDIE MEASUREMENT RESULTS: Intervals: Rate: 64 WI: 190 QRSD: 142 QT: 430 QTc: 443 [place]: P: 54 WI: 190 QRS: -58 T: 54 INTERPRETIVE STATEMENTS: Sinus rhythm with marked sinus arrhythmia Right bundle branch block Left anterior fascicular block Bifascicular block Abnormal ECG Compared to ECG 10/21/2021 10:07:50 Left anterior fascicular block now present Bifascicular block now present Atrial premature complex(es) no longer present First degree AV block no longer present Left-axis deviation no longer present Electronically Signed On 09-08-22 12:34:24 CDT by Azam Merchant
--- NOTE | 2022-09-08 13:56 | P.DS ---
Admission Date: 09/08/22 Discharge Date: 09/08/22 Primary Care Provider: Sabrina Disposition: ROUTINE DISCHARGE Discharge Condition: GOOD Reason for Admission: Chest Pain Brief History of Present Illness: Atypical pleuritic chest pain Hospital Course: Patient is 82 years of age admitted with atypical left-sided sharp stabbing chest pain on all of a sudden felt knifelike has any fever chills cough sputum hemoptysis He has had these pains before and was attributed to Plavix patient's PPI was also doubled to twice a day pain seems to have resolved/patient's EKG was normal and is negative with discharge and 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 Patient denies any dysphagia Vital Signs/Physical Exam: Temp Pulse Resp BP Pulse Ox 97.6 F 68 24 H 119/66 94 09/08/22 08:00 09/08/22 08:00 09/08/22 08:00 09/08/22 08:00 09/08/22 08:00 Laboratory Data at Discharge: WBC 6.20 thou/uL (4.3-10.9) 09/07/22 22:48 Hgb 11.3 g/dL (13.6-17.9) L 09/07/22 22:48 Hct 33.8 % (39.6-49.0) L 09/07/22 22:48 Plt Count 139 thou/uL (152-406) L 09/07/22 22:48 PT 10.8 SECONDS (9.5-12.5) 09/07/22 22:48 INR 0.98 09/07/22 22:48 Sodium 139 mEq/L (136-145) 09/07/22 22:48 Potassium 3.9 mEq/L (3.5-5.1) 09/07/22 22:48 BUN 18 mg/dL (7-18) 09/07/22 22:48 Creatinine 1.01 mg/dL (0.70-1.30) 09/07/22 22:48 Glucose 91 mg/dL (74-106) 09/07/22 22:48 Magnesium 1.9 mg/dL (1.6-2.4) 09/07/22 22:48 Total Bilirubin 0.4 mg/dL (0.2-1.0) 09/07/22 22:48 AST 22 U/L (15-37) 09/07/22 22:48 ALT 30 U/L (16-61) 09/07/22 22:48 Alkaline Phosphatase 56 U/L (45-117) 09/07/22 22:48 Triglycerides 61 mg/dL (<150) 09/08/22 04:13 Cholesterol 112 mg/dL (<200) 09/08/22 04:13 HDL Cholesterol 38 mg/dL (40-60) L 09/08/22 04:13 Cholesterol/HDL Ratio 2.95 09/08/22 04:13 Lipase 52 U/L (13-75) 09/07/22 22:48 Home Medications: Rosuvastatin Calcium [Crestor] 5 mg PO BEDTIME 12/07/11 Aspirin 81 mg PO DAILY AFTER SUPPER 05/09/16 Clopidogrel Bisulfate [Plavix*] 75 mg PO DAILY AFTER SUPPER 05/09/16 Esomeprazole Magnesium 40 mg PO DAILY AFTER SUPPER 05/09/16 Montelukast Sodium [Singulair] 10 mg PO BEDTIME PRN 05/09/16 Niacin (Inositol Niacinate) [Niacin 500 mg Capsule] 1,000 mg PO BEDTIME 05/09/16 Metoprolol Tartrate [Lopressor*] 25 mg PO BID #60 tab 07/31/19 predniSONE [Deltasone*] 10 mg PO BID #14 tab 09/08/22 New Medications: predniSONE [Deltasone*] 10 mg PO BID #14 tab Physician Discharge Instructions: To f/u with patients Doc Diet: Regular Activity: Ad arlene
--- NOTE | 2022-09-08 18:02 | RAD REPORT ---
EXAM DESCRIPTION: CT Angiography Chest, Abdomen and Pelvis With Intravenous Contrast CLINICAL HISTORY: Atypical chest pain TECHNIQUE: Axial computed tomographic angiography images of the chest, abdomen and pelvis with intra venous contrast. Sagittal and coronal reformatted images were created and reviewed. This CT exam was performed using one or more of the following dose reduction techniques: automated exposure cont rol, adjustment of the mA and/or kV according to patient size, and/or use of iterative reconstruction technique. MIP reconstructed images were created and reviewed. COMPARISON: No relevant prior studies available. FINDINGS: VASCULATURE: Aorta: Scattered atherosclerotic plaque of the aorta. No aneurysm or dissection. Pulmonary arteries: No pulmonary embolism. Great vessels of aortic arch: No acute findings. No dissection. No arterial occlusion or sign ificant stenosis. Celiac trunk and mesenteric arteries: No acute findings. No occlusion or significant stenosis. Renal arteries: No acute findings. No occlusion or significant stenosis. Iliac arteries: No acute findings. No occlusion or significant stenosis. CHEST: Lungs: Patent airways. No acute infiltrate. Pleural space: No pleural effusion or pneumothorax. Heart: Right and left coronary artery calcification. No cardiomegaly or pericardial effusion. ABDOMEN: Liver: No mass. Gallbladder and bile ducts: No calcified stones. No ductal dilation. Pancreas: No ductal dilation. No mass. Spleen: Calcified granulomas within the spleen. Adrenals: No mass. Kidneys and ureters: Symmetric renal enhancement. No hydronephrosis. No solid mass. Stomach and bowel: Stomach grossly normal. Bowel not dilated or thickened. Severe sigmoid diverti culosis without acute diverticulitis. PELVIS: Appendix: No findings to suggest acute appendicitis. Bladder: Bladder mildly filled, not thickened. Reproductive: CHEST, ABDOMEN and PELVIS: Intraperitoneal space: No significant fluid collection. No free air. Bones/joints: No acute fracture. No dislocation. Soft tissues: Normal body wall soft tissue. Lymph nodes: No lymphadenopathy. IMPRESSION: 1. No aortic aneurysm or dissection. 2. Severe sigmoid diverticulosis without acute diverticulitis. Electronically signed by: Casi Holland MD 09/08/2022 12:45 AM CDT Due to temporary technical issues with the PACS/Fluency reporting system, reports are being signed by the in house radiologists without review as a courtesy to insure prompt reporting. The interpreting radiologist is fully responsible for the content of the report.
[2022-09-08] MEDS ORDERED: ATORVASTATIN 40 MG TAB PO SCH (21:00)
== END 2022-09-08 09:05 | disposition home or self-care (01) ==
LOC: ER 21:35 → ERHOLD 09-08 01:15 → 2ND 09-08 02:30
PROVIDERS: ADMIT Internal Medicine Sleep Medicine; ATTEND Internal Medicine Sleep Medicine
DX: R07.81 Pleurodynia (principal); I25.708 Atherosclerosis of coronary artery bypass graft(s), unspecified, with other forms of angina pectoris; I10 Essential (primary) hypertension; E78.5 Hyperlipidemia, unspecified; Z88.8 Allergy status to other drugs, medicaments and biological substances; Z95.1 Presence of aortocoronary bypass graft; Z82.49 Family history of ischemic heart disease and other diseases of the circulatory system
CPT/HCPCS: 93005; 85025; 80048; 36415; 83735; 82550; 85610; 80061; 80076; 84484 ×2; 83690; 83880; 71275; 74175; 71045; Q9967; J2765; J0500; J3360; J7030; G0378; J1650